=== PATIENT | female | born 2005 | race Caucasian/White ===

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

== ENCOUNTER 2023-02-12 19:25 | Emergency (ER) | payer OTHER, SELFPAY ==
[2023-02-12] VITALS (7 sets, daily range): BP systolic 110–137; BP diastolic 65–85; PULSE 66–86; RESP 14–25; TEMP 36.7–36.9; O2SAT 96–99
--- NOTE | 2023-02-12 20:01 | HMH.EDGENADL ---
Discharge Plan Disposition Patient Disposition: Home, Self-Care Chief Complaint: Abdominal Pain Prescriptions Prescriptions: No Action + DHA 28 mg iron- 975 mcg-200 mg Combo Pack 1 pkg PO DAILY Referrals Follow up/Referrals: Ana Paula Andujar [Primary Care Provider] - See instructions Activity Restrictions/Add. Instructions Additional Instructions/Restrictions: At this time it was felt you are safe to be discharged home. If new or worsening symptoms please do not hesitate to return the emergency department. Please continue to follow-up with your obstetric doctor to trend your blood work early next week. Clinical Impressions Clinical Impression: Spontaneous Discharge ED Provider: Raymundo Mathews General Adult HPI General Chief complaint: Abdominal Pain Stated complaint: vaginal bleeding, abd pain Time Seen by Provider: 02/12/23 19:35 Mode of Arrival: Wheelchair Source of Information: Patient Limitations: No Limitations Description of Symptoms (Recalled from ER Triage Doc. by RN): Patient reports that she started bleeding this morning. Ultrasound showed 8 week gestation fetus without cardiac activity while dates should place her at 11 weeks . Bleeding became heavier this evening and she states that she has soiled 3 pads in the last 2 hours. Complains of suprapubic pressure rated 8/10. Patient reports that she has passed clots and believes she has passed products of conception. History of Present Illness HPI narrative: Patient is a 18-year-old female G1, P0 EGA 11 weeks who presents emergency department for evaluation of vaginal bleeding. Patient reportedly had been told that she was going to have a miscarriage at recent ultrasound in another hospital system. Today she had vaginal bleeding, suprapubic pressure causing her to present here for continued evaluation. No other acute complaints at this time. Related Data Home Medications Medication Instructions Recorded Confirmed vits,calcium 91-iron 28 1 pkg PO DAILY 02/12/23 02/12/23 mg-folic 975 mcg-dha 200 mg oral pack ( + DHA) Allergies Allergy/AdvReac Type Severity Reaction Status Date / Time No Known Allergies Allergy Verified 01/11/20 12:52 [facility] Disclaimer: The information contained in this section may have been updated after the patient was seen, as this information can be updated by other users. Social History Smoking Status: Unknown if ever smoked alcohol intake: never current occupational status: other Travel in the last 8 weeks: None ROS Obtained: Yes Systems reviewed as appropriate & no additional complaints except as documented Physical Exam General General appearance: alert and in no apparent distress Head Head exam: atraumatic and normocephalic Eye Eye exam: Present PERRL and EOMI ENT ENT exam: Present mucous membranes moist Neck Neck exam: Present normal inspection Chest Chest inspection: Present normal inspection and symmetric chest wall rise Respiratory Respiratory exam: Present normal lung sounds bilaterally; Absent respiratory distress Cardiovascular Cardiovascular exam: Present regular rate and normal rhythm Abdominal Exam Abdominal exam: Present soft and tenderness (Mild, suprapubic); Absent guarding or rebound Extremities Exam Extremities exam: Present normal inspection Neurological Exam Neurological exam: Present alert Psychiatric Psychiatric exam: Present normal affect Skin Skin exam: Present warm and dry Medical Decision Making Chetan Inquiry Pt receiving controlled substance: No Vital Signs: 02/12/23 19:26 02/12/23 19:32 02/12/23 20:00 Temperature 98.5 F Temperature Source Oral Pulse Rate 86 85 Pulse Rate [Right Radial] 77 Respiratory Rate 14 25 H Blood Pressure 137/85 121/67 Blood Pressure [Right Arm] 137/85 Blood Pressure Mean [Right Arm] 102 Blood Pressure Source [Rig
[2023-02-12 20:07] LABS: Basophils % 0.2 % (0.1-2.0); Eosinophils # 0.1 K/mm3 (0.0-0.4); Eosinophils % 0.9 % (0.1-12.0); Hematocrit 39.5 % (37.0-47.0); Hemoglobin 13.5 g/dL (12.2-16.2); Lymphocytes # 3.4 K/mm3 (0.7-4.5); Lymphocytes % 29.3 % (10-50); Mean Corpuscular HGB Conc 34.3 g/dL (31.8-35.4); Mean Corpuscular Hemoglobin 31.9 pg (27.0-31.2); Mean Corpuscular Volume 93.1 fl (81-99); Mean Platelet Volume 8.6 fl (7.4-10.4); Monocytes # 0.7 K/mm3 (0.1-1.0); Neutrophils # 7.3 K/mm3 (1.8-7.8); Neutrophils % 63.6 % (37.0-80.0); Platelet Count 249 K/mm3 (142-424); Red Blood Count 4.24 M/mm3 (4.20-5.40); Red Cell Distribution Width 12.8 % (11.5-17.5); White Blood Count 11.5 K/mm3 (4.5-13.0)
[2023-02-12 20:14] LABS: Chloride 106 mmol/L (98-107); Potassium 3.7 mmoL/L (3.5-5.1); Sodium 139 mmol/L (136-145)
[2023-02-12 20:16] LABS: Alanine Aminotransferase 39 U/L (12-78); Aspartate Amino Transferase 37 U/L (14-36); Blood Urea Nitrogen 8 mg/dl (7-17); Creatinine Clearance Estimated 187 mL/min (50-200); Estimated Glomerular Filt Rate 127 ml/min (>60); GFR (African American) 154 ML/MIN (>60)
[2023-02-12 20:17] LABS: Albumin Level 4.8 g/dl (3.5-5.0); Albumin/Globulin Ratio 1.5 (1.1-1.8); Alkaline Phosphatase 72 U/L (38-126); Anion Gap 13.7 mEq/L (5-15); Bilirubin,Total 0.3 mg/dl (0.2-1.3); Calcium 9.4 mg/dl (8.4-10.2); Carbon Dioxide 23 mmol/L (22.0-30.0); Globulin 3.2 g/dL (1.3-3.2); Glucose 100 mg/dl (74-100)
[2023-02-12 20:24] LABS: Microscopic, Urine URINE MICROSCOPIC (MICROSCOPIC)
[2023-02-12 20:34] LABS: HCG,Quantitative 2684 mIU/ml (0-5.42)
--- NOTE | 2023-02-12 20:35 | US_ITS ---
PROCEDURE INFORMATION: Exam: US , Transvaginal and US Duplex Artery or Vein, Ovaries, Limited Exam date and time: 02/12/2023 9:08 PM Age: 18 years old Clinical indication: Lmp or gestational age (in weeks): 12/10/2022; Other: Bleeding - passing clot; Patient HX: Keith Juarez -- was told in doctor's office today she was having a miscarriage -- has been bleeding heavy with clots since; Additional info: Establish preg location/poss [facility] LABS AND CLINICAL REPORTS: Last menstrual period start date: 12/10/2022 Gestational age (Established): 9 w 1 d Estimated due date (Established): 09/16/2023 TECHNIQUE: Imaging protocol: Real-time transvaginal obstetrical ultrasound of the maternal pelvis and a first trimester with image documentation. Transvaginal imaging was used for better evaluation of the fetus, adnexa, and/or cervix. Real-time duplex ultrasound scan of the arterial or venous flow of the ovaries with B-mode, color Doppler flow and spectral waveform analysis, Limited Duplex. Duplex exam was performed to evaluate for torsion and other vascular conditions. COMPARISON: CR XR COCCYX 2V 02/17/2022 12:46 PM FINDINGS: GESTATION: Gestation: No intrauterine gestational sac is identified. A simple appearing 4 mm cystic focus in the posterior proximal cervix along the endometrial canal is most consistent with a nabothian cyst with no yolk sac or pole demonstrated. MATERNAL: Right ovary/adnexa: Right ovary measures 3.13 cm x 1.72 cm x 1.28 cm. Right ovarian volume is 3.61 mL. Normal grayscale appearance with small physiologic follicles. Color flow documented. Spectral venous waveforms documented. Left ovary/adnexa: Left ovary measures 2.59 cm x 2.65 cm x 1.37 cm. Left ovarian volume is 4.92 mL. Normal grayscale appearance with probable 10 mm corpus luteum in the left ovary. Color flow documented. Spectral venous waveforms and low resistance arterial waveforms documented. Vagina: Mild endometrial stripe thickening measuring up to 9 mm, with heterogeneous mixed density hyperechoic, isoechoic, and hypoechoic content suggesting a small amount of complex fluid which is greatest in the mid and distal segments, likely hemorrhage given the history of vaginal bleeding. Intraperitoneal space: No intraperitoneal free fluid. IMPRESSION: 1. No definite intrauterine gestational sac is identified currently. There is complex fluid content in the endometrial cavity probably representing blood products given the history of vaginal bleeding, with no definite retained products of conception. 2. If there was a known well documented intrauterine gestation previously, then the findings are most consistent with completed spontaneous miscarriage. If that is not the case, then the possibility of early IUP or occult ectopic should still be considered. Recommend followup quantitative beta-hCG assessment, with follow up ultrasound if clinically indicated. 3. Normal ovaries with probable corpus luteum in the left ovary. No peritoneal free fluid. 4. Probable nabothian cyst in the proximal cervix.
[2023-02-12 20:41] LABS: Appearance,Urine CLEAR (Clear); Bilirubin,Urine Negative (Negative); Blood, Urine 3+ (Negative); Color,Urine YELLOW (Yellow); Glucose,Urine (UA) Negative (Negative); Ketones,Urine Negative (Negative); Leukocyte Esterase,Urine Negative (Negative); Nitrate,Urine Negative (Negative); Protein,Urine Negative (Negative); Specific Gravity, Urine 1.025 (1.005-1.030); Urobilinogen,Urine 0.2 EU/dl (0.2)
[2023-02-12 20:45] LABS: RBC,Urine 20-50 #/hpf (0-3); Squamous Epithelial Cell,Urine Occasional #/hpf (0-5)
--- NOTE | 2023-02-12 21:07 | PC.NURSE ---
patient gone to US at this time.
--- NOTE | 2023-02-12 21:37 | PC.NURSE ---
patient back in room at this time.
== END 2023-02-12 23:06 | disposition home or self-care (01) ==
PROVIDERS: Emergency Provider Emergency Medicine; PCP Nurse Practitioner Family
DX: O03.9 Complete or unspecified spontaneous abortion without complication (principal)
CPT/HCPCS: 36415; 76817; 80053; 81001; 84702; 85025; 86850; 99284

== ENCOUNTER 2023-07-20 08:59 | Outpatient (CLI) | payer OTHER, SELFPAY ==
[2023-07-20 13:20] LABS: HCG,Quantitative 49788 mIU/ml (0-5.42)
[2023-07-21 08:26] LABS: Progesterone 7.3 ng/mL (.)
== END 2023-07-20 23:59 ==
PROVIDERS: PCP Nurse Practitioner Family; Visit Provider Obstetrics & Gynecology
DX: K08.129 Complete loss of teeth due to periodontal diseases, unspecified class (principal); N92.6 Irregular menstruation, unspecified; Z32.00 Encounter for pregnancy test, result unknown
CPT/HCPCS: 36415; 84144; 84702

== ENCOUNTER 2023-07-23 19:10 | Outpatient (CLI) | payer OTHER, SELFPAY ==
[2023-07-27 00:09] LABS: Neisseria gonorrhoeae, NAA Negative (Negative)
== END 2023-07-23 23:59 | disposition home or self-care (01) ==
LOC: LAB.DROPOF 19:10
PROVIDERS: PCP Obstetrics & Gynecology; Visit Provider Obstetrics & Gynecology
DX: O26.891 Other specified pregnancy related conditions, first trimester (principal); Z3A.08 8 weeks gestation of pregnancy
CPT/HCPCS: 87086; 87491; 87591

== ENCOUNTER 2023-08-17 12:33 | Outpatient (CLI) | payer OTHER, SELFPAY ==
[2023-08-17 13:10] LABS: Basophils % 0.3 % (0.1-2.0); Eosinophils # 0.1 K/mm3 (0.0-0.4); Eosinophils % 0.8 % (0.1-12.0); Hematocrit 40.4 % (37.0-47.0); Hemoglobin 13.4 g/dL (12.2-16.2); Lymphocytes # 2.4 K/mm3 (0.7-4.5); Lymphocytes % 18.5 % (10-50); Mean Corpuscular HGB Conc 33.1 g/dL (31.8-35.4); Mean Corpuscular Hemoglobin 31.5 pg (27.0-31.2); Mean Corpuscular Volume 95.2 fl (81-99); Mean Platelet Volume 8.8 fl (7.4-10.4); Monocytes # 0.7 K/mm3 (0.1-1.0); Monocytes % 5.2 % (1.7-9.3); Neutrophils # 9.7 K/mm3 (1.8-7.8); Neutrophils % 75.2 % (37.0-80.0); Platelet Count 274 K/mm3 (142-424); Red Blood Count 4.25 M/mm3 (4.20-5.40); Red Cell Distribution Width 13.3 % (11.5-17.5); White Blood Count 12.9 K/mm3 (4.5-13.0)
[2023-08-18 06:35] LABS: Rubella Antibodies, IgG 1.56 index (Immune >0.99)
[2023-08-18 13:15] LABS: Rapid Plasma Reagin Ab Titer Non Reactive titer (NonRea<1:1)
[2023-08-20 15:48] LABS: HIV Screen 4th Generation wRfx Non Reactive; Hepatitis B Surface Antigen Negative
[2023-08-20 15:49] LABS: Hepatitis C Antibody Non Reactive
== END 2023-08-17 23:59 | disposition home or self-care (01) ==
LOC: LAB 12:34
PROVIDERS: PCP Nurse Practitioner Family; Visit Provider Obstetrics & Gynecology
DX: O26.891 Other specified pregnancy related conditions, first trimester (principal); Z3A.11 11 weeks gestation of pregnancy
CPT/HCPCS: 36415; 85025; 86593; 86703; 86762; 86850; 87340; 87380; G0432

== ENCOUNTER 2023-10-14 09:06 | Outpatient (CLI) | payer OTHER, SELFPAY ==
--- NOTE | 2023-10-14 09:07 | US_ITS ---
PROCEDURE: US OB >= 14 WEEKS FETUS CLINICAL INDICATION: 20 wk+ Anatomy Scan-Complete US OB COMPARISON: No exams were available for comparison FINDINGS: Transabdominal sonographic images of the pelvis were obtained. From her established due date she is 19 weeks 2 days.. Single viable intrauterine gestation. Cephalic position. Placenta: Posteriorplacenta grade 1. There is an average amount of fluid. The cervix appears satisfactory. Closed and measuring 2.96 cm-4.1 cm in length. Complete survey performed and was unremarkable on the submitted images as in PACS. No discrete anomalies identified on survey imaging by technologist. Active fetus. Three-vessel cord with satisfactory umbilical cord insertion. 4- chamber heart noted. Situs, aortic arch, LVOT, RVOT, three-vessel view appear normal. Survey of brain & ventricles Unremarkable. Cerebellum, thalamus, choroid plexus, cisterna magna appear normal. Face and neck survey unremarkable. Profile, nasion, lips and nose appeared normal. Diaphragm and chest views unremarkable. Abdomen: Both kidneys noted and unremarkable. Stomach and bladder noted and satisfactory. Spine: Survey of the spine satisfactory with no anomalies identified nor imaged. Cervical, thoracic, lower spine appear normal. Both arms and legs noted. Amniotic Fluid: Adequate. MVP 7.61 cm Measurements: Average ultrasound age 20weeks 1day. Estimated due date by ultrasound age 1103/01/2024. Estimated weight 325g BPD = 20weeks 1day HC = 20weeks 0 days AC = 20weeks 5days FL = 19weeks 3days Growth Percentile= 84 Heart Rate = 132bpm Cerebellum = 18weeks 6days Humerus = 19weeks 4days HC/AC is 1.13 FL/BPD is 0.65 FL/AC is 0.2 anatomical scan appears normal. IMPRESSION: 1. Viable fetus in the cephalic presentation with a posterior placenta grade 1. 2. Fluid is within normal limits with an MVP of 7.61 cm. 3. Anatomical scan appears normal. 4. biometry is consistent with the dates. Dictated by: Varghese Donahue MD 10/14/2023 10:41 Varghese Donahue MD in [facility] 10/14/2023 10:41
== END 2023-10-14 23:59 | disposition home or self-care (01) ==
LOC: RAD 09:07
PROVIDERS: PCP Nurse Practitioner Family; Visit Provider Obstetrics & Gynecology
DX: Z36.3 Encounter for antenatal screening for malformations (principal); Z3A.19 19 weeks gestation of pregnancy
CPT/HCPCS: 76805

== ENCOUNTER 2023-12-09 11:18 | Outpatient (CLI) | payer OTHER, SELFPAY ==
[2023-12-09 11:40] LABS: Basophils # 0.1 K/mm3 (0-0.2); Basophils % 0.3 % (0.1-2.0); Eosinophils # 0.2 K/mm3 (0.0-0.4); Hematocrit 35.8 % (37.0-47.0); Hemoglobin 11.9 g/dL (12.2-16.2); Lymphocytes # 2.5 K/mm3 (0.7-4.5); Lymphocytes % 17.1 % (10-50); Mean Corpuscular HGB Conc 33.1 g/dL (31.8-35.4); Mean Corpuscular Hemoglobin 31.9 pg (27.0-31.2); Mean Corpuscular Volume 96.5 fl (81-99); Mean Platelet Volume 9.6 fl (7.4-10.4); Monocytes % 6.5 % (1.7-9.3); Neutrophils # 10.9 K/mm3 (1.8-7.8); Platelet Count 255 K/mm3 (142-424); Red Blood Count 3.72 M/mm3 (4.20-5.40); Red Cell Distribution Width 13.4 % (11.5-17.5); White Blood Count 14.5 K/mm3 (4.5-13.0)
[2023-12-09 12:52] LABS: Glucose,Fasting 92 mg/dl (74-100)
[2023-12-09 13:21] LABS: Glucose 1 Hour 115 mg/dL (74-100)
[2023-12-10 12:13] LABS: Rapid Plasma Reagin Ab Titer Non Reactive titer (NonRea<1:1)
== END 2023-12-09 23:59 | disposition home or self-care (01) ==
LOC: LAB 11:21
PROVIDERS: PCP Nurse Practitioner Family; Visit Provider Obstetrics & Gynecology
DX: Z34.90 Encounter for supervision of normal pregnancy, unspecified, unspecified trimester (principal)
CPT/HCPCS: 36415; 82951; 85025; 86593

== ENCOUNTER 2024-02-08 16:58 | Outpatient (CLI) | payer OTHER, SELFPAY | END 2024-02-08 23:59 | disposition home or self-care (01) | LOC: LAB.DROPOF 16:59 | PROVIDERS: PCP Obstetrics & Gynecology; Visit Provider Obstetrics & Gynecology | DX: Z34.90 Encounter for supervision of normal pregnancy, unspecified, unspecified trimester (principal) | CPT/HCPCS: 86403 ==

== ENCOUNTER 2024-03-01 04:54 | Inpatient (IN) | payer OTHER, SELFPAY ==
[2024-03-01] VITALS (7 sets, daily range): BP systolic 116–136; BP diastolic 53–74; PULSE 65–85; RESP 14–18; TEMP 36.5–36.7; O2SAT 97–100; BMI 36.2
--- OUTSIDE RECORDS SUMMARY | 2024-03-01 04:59 | XMS_ITS | Clinical Summary ---
Author Organization [facility] Address [address] [place] [address] Care Team Providers Care Flame Gouger Name Role Phone Ana Paula Andujar APRN Primary Care Provider + [phone] Allergies No known active allergies Social History Tobacco Use Types Packs/Day Years Used Date Smoking Tobacco: Every Day Smokeless Tobacco: Never Comments:vapes Alcohol Use Standard Drinks/Week Comments Never 0 (1 standard drink = 0.6 oz pur e alcohol) Interpersonal Safety Answer Date Record ed Family or friends hurt you Not on file 05/02 Family or friends insult you Not on file Family or friends threaten you Not on file 0 05/02/2023 Family or friends scream or curse at you Not on file 05/02/2023 Housing Stability Answer Date Recorded Living situation today Not on file Living situation problems Not on file 2023 Food Insecurity Answer Date Recorded Food run out past 12 months Not on file 04/14 Food did not last past 12 months Not on file 05/02/2023 Employment Answer Date Recorded Help finding and keeping a job Not on file 0 05/02/2023 Family and Community Support Answer Manuel e Recorded Help with Day to Day Activities Not on file 05/02/2023 Feeling Lonely or Isolated Not on file 05/02 Educational Attainment Answer Date Daniel rded Speak language other than [place] at home Not on file 05/02/2023 Want help with school or training Not on file 05/02/2023 Depression Answer Date Recorded PHQ-2 Risk Not on file 05/02/2023 Disabilities Answer Date Recorded Difficulty concentrating Not on file 024 Difficulty doing errands alone Not on file 0 05/02/2023 Substance Use Answer Date Recorded Used prescription meds for non-medical reasons N ot on file 05/02/2023 Used illegal drugs past 12 months Not on file 05/02/2023 Comments No Sex and Gender Information Value Date Recorded Sex Assigned at Not on file Legal Sex Female 6:17 PM CDT Gender Identity Not on file Sexual Orientation Not on file Last Filed Vital Signs Vital Sign Reading Time Taken Comments Blood Pressure 131/60 02/13/2022 7:26 PM EDT Pulse 79 02/13/2022 7:26 PM EDT Temperature 36.9 ??C (98.4 ??F) 02/13/2022 7:26 PM ED T Respiratory Rate 18 02/13/2022 7:26 PM EDT Oxygen Saturation 100% 02/13/2022 7:26 PM EDT Inhaled Oxygen Concentration - - Weight 81.6 kg (180 lb) 02/13/2022 7:26 PM EDT Height 162.6 cm (5' 4 ) 02/13/2022 7:26 PM EDT Body Mass Index 30.9 02/13/2022 7:26 PM EDT Plan of Treatment Health Maintenance Due Date Last Done Comments Chlamydia and Gonorrhea Screening 2003 Pneumococcal Vaccine: 0-64 Y ears (1 of 2 - PCV) 2009 Depression Screening (12+) 2015 HIV Screening 2018 Hepatitis C Screening 2021 Lipid Panel 2023 Tobacco Cessation Counseling and Screening (12+) 02/13/2023 02/13/2022 COVID-19 VACCINE (1 - 2023-2 5 season) 2023 Influenza Vaccine (#1) 2023 Pap Smear 02/01/2024 DTAP/TDAP/TD VACCINES (7 - T d or Tdap) 11/19/2025 11/20/2015, 02/26/2007, 06/07/2004, Additional history exists Insurance [facility] MEDICA[employer] OF [place] Care Teams Flame Gouger Relationship Specialty Start Date End Date Ana Paula Andujar, CULINARY MANAGER PCP - General Family Medicine 02/13/22
--- OUTSIDE RECORDS SUMMARY | 2024-03-01 04:59 | XMS_ITS | Encounter Summary ---
Author Organization [facility] Address [address] [place] [address] Care Team Providers Care Admissions Supervisor Name Role Phone Ana Paula Andujar PROTECTION MGR Primary Care Provider + [phone] Encounter Details Date Type Department Care Team (Latest Contact Info) Description 02/13/2022 Travel Social History Tobacco Use Types Packs/Day Years Used Date Smoking Tobacco: Every Day Smokeless Tobacco: Never Comments:vapes Alcohol Use Standard Drinks/Week Comments Never 0 (1 standard drink = 0.6 oz pur e alcohol) Comments No Sex and Gender Information Value Date Recorded Sex Assigned at Not on file Legal Sex Female 6:17 PM CDT Gender Identity Not on file Sexual Orientation Not on file COVID-19 Exposure Response Date Recorded In the last 10 days, have yo u been in contact with someone who was confirmed or suspected to have Coronavirus/COVID-19? No / Unsure 02/13/2022 7:29 PM EDT documented as of this encounter Plan of Treatment Not on file documented as of this encounter Visit Diagnoses Not on filedocumented in this encounter Care Teams Admissions Supervisor Relationship Specialty Start Date End Date Ana Paula Andujar APRN PCP - General Family Medicine 02/13/22 documented as of this encounter
--- OUTSIDE RECORDS SUMMARY | 2024-03-01 04:59 | XMS_ITS | Data Portability ---
Author Organization [facility] Address [address] [place] [address] Assessment Encounter Date Assessment Date Assessment LastModified by Organization Details LastModified Time 02/12/2023 02/12/2023 18 yo here as bring in for vaginal bleeding and cramping [email or web address] Not available 02/12/2023 11:08:14 Plan of Treatment Reminders Order Date Submit Date Provider Last Modified By Organization Details Last Modified Time Details Appointments None recorded. Lab urinalysis , dipstick 2022 023 [facility] Dough Braker, [address] [place] [address] , [place], [address], 3 14:49:27 urinalysis , dipstick 2022 023 [email or web address] [place] [facility], [address] [place] [address] , [place], [address], 3 11:11:50 CBC w/ auto diff 2022 023 SAAD [facility], [address], Antonio F, [place], [address], 3 04:09:37 HCG, intact + beta subunit, quant, serum or plasma 2022 023 SAAD [facility], [address], Antonio [address], [place], [address], 3 09:14:49 Referral None recorded. Procedures None recorded. Surgeries None recorded. Imaging US, obstetric, 1st trimester [address] Dough Braker, [address] [place] [address] , [place], [address], 3 11:08:00 US, obstetric, 1st trimester [address] Dough Braker, [address] [place] [address] , [place], [address], 3 11:24:11 US, obstetric, 1st trimester 2022 023 [facility] [place] [facility], [address] [place] [address] , [place], [address], 3 15:30:11 US, obstetric, 1st trimester 2022 023 [facility] [place] [facility], [address] [place] [address] , [place], [address], 3 19:13:36 Medication Orders 28 mg iron-800 mcg tablet 2022 023 [facility], [address] [place], [address], 3 14:54:44 Patient TargetsNo targets recorded. Patient Instructions Encounter Date Encounter Id Patient Instructions Last Modified By Organization Details Last Modified Time 02/12/2023 [id number] US today shows nonviable IUP. Cervix open. C/w inevitable miscarriage measuring 8+3 wk GA. No signs of infection. Discussed options including suction D&C, medication, or expectant mgmt. She desires expectant mgmt. Given strict precautions for bleeding, infection, Discussed return in 1 wk for f/u and US. Discussed CBC today. Rh positive. [email or web address] Not available 02/12/2023 11:11:48 Reason for Referral None Reported. Results Created Date Observation Date Name Description Value Unit Range Abnormal Flag Note LastModifiedBy Organization Detail LastModifiedTime 01/09/20 23 01/09/2023 PREGN ANTHONY, INITI AL SCREE N HBsAg screen Negati ve negati ve Not Available [facility] ([facility]) [address] [facility], [place], [address], 01/10/2023 16:11:39 01/09/20 23 01/09/2023 PREGN ANTHONY, INITI AL SCREE N HCV Ab Non Reacti ve non reacti ve Not Available [facility] ([facility]) [address] [facility], [place], [address], 01/10/2023 16:11:39 01/09/20 23 01/09/2023 PREGN ANTHONY, INITI AL SCREE N interpretati on: Commen t Not infec daly with HCV unles s early or acute infec tion is suspe cted (whic h may be delay ed in an immun ocomp romis ed indiv idual ), or other evide nce exist s to indic ate HCV infec tion. Not Available [facility] ([facility]) [address] [facility], [place], [address], 01/10/2023 16:11:39 01/09/20 23 01/09/2023 PREGN ANTHONY, INITI AL SCREE N RPR Non Reacti ve non reacti ve Not Available [facility] ([facility]) [address] [facility], [place], [address], 01/10/2023 16:11:39 01/09/20 23 01/09/2023 PREGN ANTHONY, INITI AL SCREE N rubella antibodies, IgG 1.79 index immune >0.99 Non-i mmune <0.90 Equiv ocal 0.90 - 0.99 Immun e >0.99 Not Available [facility] ([facility]) [address] [facility], [place], [address], 01/10/2023 16:11:39 01/09/20 23 01/09/2023 PREGN ANTHONY, INITI AL SCREE N ABO grouping O Not Available [facility] ([facility]) [address] [facility], [place], [address], 01/10/2023 16:11:39 01/09/20 23 01/09/2023 PREGN ANTHONY, INITI AL SCREE N Rh factor Positi ve Pleas e note: Prior recor ds for this patie nt's ABO / Rh type are not avail able for addit ional verif icati on. Not Available [facility] ([facility]) [address] [facility], [place], [address], 01/10/2023 16:11:39 01/09/20 23 01/09/2023 PREGN ANTHONY, INITI AL SCREE N antibody screen Negati ve negati ve Not Available [facility] ([facility]) [address] [facility], [place], [address], 01/10/2023 16:11:39 01/09/20 23 01/09/2023 PREGN ANTHONY, INITI AL SCREE N HIV Ab/P24 Ag screen Non Reacti ve non reacti ve HIV Negat miriam HIV-1 /HIV- 2 antib odies and HIV-1 p24 antig en were NOT detec daly. There is no labor atory evide nce of HIV infec tion. Not Available [facility] ([facility]) [address] [facility], [place], [address], 01/10/2023 16:11:39 01/09/20 23 01/09/2023 PREGN ANTHONY, INITI AL SCREE N WBC 8.1 x10e3 /uL 3.4-10 .8 Not Available [facility] ([facility]) [address] [place], [address], 01/10/2023 16:11:39 01/09/20 23 01/09/2023 PREGN ANTHONY, INITI AL SCREE N RBC 4.05 x10e6 /uL 3.77-5 .28 Not Available [facility] ([facility]) [address] [place], [address], 01/10/2023 16:11:39 01/09/20 23 01/09/2023 PREGN ANTHONY, INITI AL SCREE N hemoglobin 12.5 g/dL 11.1-1 5.9 Not Available [facility] ([facility]) [address] [facility], [place], [address], 01/10/2023 16:11:39 01/09/20 23 01/09/2023 PREGN ANTHONY, INITI AL SCREE N hematocrit 38.6 % 34.0-4 6.6 Not Available [facility] ([facility]) [address] [facility], [place], [address], 01/10/2023 16:11:39 01/09/20 23 01/09/2023 PREGN ANTHONY, INITI AL SCREE N MCV 95 fL 79-97 Not Available [facility] ([facility]) [address] [facility], [place], [address], 01/10/2023 16:11:39 01/09/20 23 01/09/2023 PREGN ANTHONY, INITI AL SCREE N MCH 30.9 pg 26.6-3 3.0 Not Available [facility] ([facility]) [address] [facility], [place], [address], 01/10/2023 16:11:39 01/09/20 23 01/09/2023 PREGN ANTHONY, INITI AL SCREE N MCHC 32.4 g/dL 31.5-3 5.7 Not Available [facility] ([facility]) [address] [place], [address], 01/10/2023 16:11:39 01/09/20 23 01/09/2023 PREGN ANTHONY, INITI AL SCREE N RDW 12.3 % 11.7-1 5.4 Not Available [facility] ([facility]) [address] [place], [address], 01/10/2023 16:11:39 01/09/20 23 01/09/2023 PREGN ANTHONY, INITI AL SCREE N platelets 267 x10e3 /uL 150-45 0 Not Available [facility] ([facility]) [address] [facility], [place], [address], 01/10/2023 16:11:39 01/09/20 23 01/09/2023 PREGN ANTHONY, INITI AL SCREE N neutrophils 62 % not estab. Not Available [facility] ([facility]) [address] [facility], [place], [address], 01/10/2023 16:11:39 01/09/20 23 01/09/2023 PREGN ANTHONY, INITI AL SCREE N lymphs 28 % not estab. Not Available [facility] ([facility]) [address] [facility], [place], [address], 01/10/2023 16:11:39 01/09/20 23 01/09/2023 PREGN ANTHONY, INITI AL SCREE N monocytes 9 % not estab. Not Available [facility] ([facility]) [address] [facility], [place], [address], 01/10/2023 16:11:39 01/09/20 23 01/09/2023 PREGN ANTHONY, INITI AL SCREE N eos 1 % not estab. Not Available [facility] ([facility]) [address] [facility], [place], [address], 01/10/2023 16:11:39 01/09/20 23 01/09/2023 PREGN ANTHONY, INITI AL SCREE N basos 0 % not estab. Not Available [facility] ([facility]) [address] [facility], [place], [address], 01/10/2023 16:11:39 01/09/20 23 01/09/2023 PREGN ANTHONY, INITI AL SCREE N immature cells [employer] Not Available [facility] ([facility]) [address] [facility], [place], [address], 01/10/2023 16:11:39 01/09/20 23 01/09/2023 PREGN ANTHONY, INITI AL SCREE N neutrophils (absolute) 5.0 x10e3 /uL 1.4-7. 0 Not Available [facility] ([facility]) [address] [facility], [place], [address], 01/10/2023 16:11:39 01/09/20 23 01/09/2023 PREGN ANTHONY, INITI AL SCREE N lymphs (absolute) 2.2 x10e3 /uL 0.7-3. 1 Not Available [facility] ([facility]) [address] [place], [address], 01/10/2023 16:11:39 01/09/20 23 01/09/2023 PREGN ANTHONY, INITI AL SCREE N monocytes(ab solute) 0.7 x10e3 /uL 0.1-0. 9 Not Available [facility] ([facility]) [address] [facility], [place], [address], 01/10/2023 16:11:39 01/09/20 23 01/09/2023 PREGN ANTHONY, INITI AL SCREE N eos (absolute) 0.1 x10e3 /uL 0.0-0. 4 Not Available [facility] ([facility]) [address] [place], [address], 01/10/2023 16:11:39 01/09/20 23 01/09/2023 PREGN ANTHONY, INITI AL SCREE N baso (absolute) 0.0 x10e3 /uL 0.0-0. 2 Not Available [facility] ([facility]) [address] [place], [address], 01/10/2023 16:11:39 01/09/20 23 01/09/2023 PREGN ANTHONY, INITI AL SCREE N immature granulocytes 0 % not estab. Not Available [facility] ([facility]) [address] [place], [address], 01/10/2023 16:11:39 01/09/20 23 01/09/2023 PREGN ANTHONY, INITI AL SCREE N immature grans (abs) 0.0 x10e3 /uL 0.0-0. 1 Not Available [facility] ([facility]) [address] [facility], [place], [address], 01/10/2023 16:11:39 01/09/20 23 01/09/2023 PREGN ANTHONY, INITI AL SCREE N NRBC [employer] Not Available [facility] ([facility]) [address] [facility], [place], [address], 01/10/2023 16:11:39 01/09/20 23 01/09/2023 PREGN ANTHONY, INITI AL SCREE N hematology comments: [employer] Not Available [facility] ([facility]) [address] [facility], [place], [address], 01/10/2023 16:11:39 01/09/20 23 01/09/2023 PREGN ANTHONY, INITI AL SCREE N specific gravity 1.021 1.005- 1.030 Not Available [facility] ([facility]) [address] [facility], [place], [address], 01/10/2023 16:11:39 01/09/20 23 01/09/2023 PREGN ANTHONY, INITI AL SCREE N pH 5.5 5.0-7. 5 Not Available [facility] ([facility]) [address] [facility], [place], [address], 01/10/2023 16:11:39 01/09/20 23 01/09/2023 PREGN ANTHONY, INITI AL SCREE N urine-color Yellow yellow Not Available [facility] ([facility]) [address] [facility], [place], [address], 01/10/2023 16:11:39 01/09/20 23 01/09/2023 PREGN ANTHONY, INITI AL SCREE N appearance Cloudy clear abnormal Not Available [facility] ([facility]) [address] [facility], [place], [address], 01/10/2023 16:11:39 01/09/20 23 01/09/2023 PREGN ANTHONY, INITI AL SCREE N WBC esterase Negati ve negati ve Not Available [facility] ([facility]) [address] [facility], [place], [address], 01/10/2023 16:11:39 01/09/20 23 01/09/2023 PREGN ATNHONY, INITI AL SCREE N protein Negati ve negati ve/tra ce Not Available [facility] ([facility]) [address] [facility], [place], [address], 01/10/2023 16:11:39 01/09/20 23 01/09/2023 PREGN ANTHONY, INITI AL SCREE N glucose Negati ve negati ve Not Available [facility] ([facility]) [address] [facility], [place], [address], 01/10/2023 16:11:39 01/09/20 23 01/09/2023 PREGN ANTHONY, INITI AL SCREE N ketones Negati ve negati ve Not Available [facility] ([facility]) [address] [facility], [place], [address], 01/10/2023 16:11:39 01/09/20 23 01/09/2023 PREGN ANTHONY, INITI AL SCREE N occult blood Negati ve negati ve Not Available [facility] ([facility]) [address] [place], [address], 01/10/2023 16:11:39 01/09/20 23 01/09/2023 PREGN ANTHONY, INITI AL SCREE N bilirubin Negati ve negati ve Not Available [facility] ([facility]) [address] [place], [address], 01/10/2023 16:11:39 01/09/20 23 01/09/2023 PREGN ANTHONY, INITI AL SCREE N urobilinogen ,semi-qn 0.2 mg/dL 0.2-1. 0 Not Available [facility] ([facility]) [address] [facility], [place], [address], 01/10/2023 16:11:39 01/09/20 23 01/09/2023 PREGN ANTHONY, INITI AL SCREE N nitrite, urine Negati ve negati ve Not Available [facility] ([facility]) [address] [facility], [place], [address], 01/10/2023 16:11:39 01/09/20 23 01/09/2023 PREGN ANTHONY, INITI AL SCREE N microscopic examination Commen t Micro scopi c follo ws if indic ated. Not Available [facility] ([facility]) [address] [facility], [place], [address], 01/10/2023 16:11:39 01/09/20 23 01/09/2023 PREGN ANTHONY, INITI AL SCREE N microscopic examination See below: Micro scopi c was indic ated and was perfo rmed. Not Available [facility] ([facility]) [address] [facility], [place], [address], 01/10/2023 16:11:39 01/09/20 23 01/09/2023 PREGN ANTHONY, INITI AL SCREE N WBC 0-5 /hpf 0 - 5 Not Available [facility] ([facility]) [address] [facility], [place], [address], 01/10/2023 16:11:39 01/09/20 23 01/09/2023 PREGN ANTHONY, INITI AL SCREE N RBC None seen /hpf 0 - 2 Not Available [facility] ([facility]) [address] [place], [address], 01/10/2023 16:11:39 01/09/20 23 01/09/2023 PREGN ANTHONY, INITI AL SCREE N epithelial cells (non renal) >10 /hpf 0 - 10 abnormal Not Available [facility] ([facility]) [address] [facility], [place], [address], 01/10/2023 16:11:39 01/09/20 23 01/09/2023 PREGN ANTHONY, INITI AL SCREE N epithelial cells (renal) [employer] Not Available [facility] ([facility]) [address] [facility], [place], [address], 01/10/2023 16:11:39 01/09/20 23 01/09/2023 PREGN ANTHONY, INITI AL SCREE N casts None seen /lpf none seen Not Available [facility] ([facility]) [address] [facility], [place], [address], 01/10/2023 16:11:39 01/09/20 23 01/09/2023 PREGN ANTHONY, INITI AL SCREE N cast type [employer] Not Available [facility] ([facility]) [address] [facility], [place], [address], 01/10/2023 16:11:39 01/09/20 23 01/09/2023 PREGN ANTHONY, INITI AL SCREE N crystals [employer] Not Available [facility] ([facility]) [address] [facility], [place], [address], 01/10/2023 16:11:39 01/09/20 23 01/09/2023 PREGN ANTHONY, INITI AL SCREE N crystal type [employer] Not Available [facility] ([facility]) [address] [facility], [place], [address], 01/10/2023 16:11:39 01/09/20 23 01/09/2023 PREGN ANTHONY, INITI AL SCREE N mucus threads [employer] Not Available [facility] ([facility]) [address] [facility], [place], [address], 01/10/2023 16:11:39 01/09/20 23 01/09/2023 PREGN ANTHONY, INITI AL SCREE N bacteria Many none seen/f ew abnormal Not Available [facility] ([facility]) [address] [facility], [place], [address], 01/10/2023 16:11:39 01/09/20 23 01/09/2023 PREGN ANTHONY, INITI AL SCREE N yeast [employer] Not Available [facility] ([facility]) [address] [facility], [place], [address], 01/10/2023 16:11:39 01/09/20 23 01/09/2023 PREGN ANTHONY, INITI AL SCREE N trichomonas [employer] Not Available [facility] ([facility]) [address] [facility], [place], [address], 01/10/2023 16:11:39 01/09/20 23 01/09/2023 PREGN ANTHONY, INITI AL SCREE N comment [employer] Not Available [facility] ([facility]) [address] [facility], [place], [address], 01/10/2023 16:11:39 01/09/20 23 01/10/2023 PREGN ANTHONY, INITI AL SCREE N chlamydia trachomatis, KAVON Negati ve negati ve Not Available [facility] ([facility]) [address] [facility], [place], [address], 01/10/2023 16:11:39 01/09/20 23 01/10/2023 PREGN ANTHONY, INITI AL SCREE N neisseria gonorrhoeae, KAVON Negati ve negati ve Not Available [facility] ([facility]) [address] [facility], [place], [address], 01/10/2023 16:11:39 01/09/20 23 01/10/2023 PREGN ANTHONY, INITI AL SCREE N urine culture,pren atal, w/gbs Final report Not Available [facility] ([facility]) [address] [facility], [place], [address], 01/10/2023 16:11:39 01/09/20 23 01/10/2023 PREGN SHAJI CRUZ AL SCREE N result 1 COMMEN T Mixed uroge nital bud Less than 10,00 0 colon ies/m L Not Available [facility] ([facility]) [address] [facility], [place], [address], 01/10/2023 16:11:39 01/09/20 23 01/09/2023 HEMOG LOBIN A1C hemoglobin A1C 5.2 % 4.8-5. 6 Predi abete s: 5.7 - 6.4 Diabe becky: >6.4 Glyce paola contr ol for adult s with diabe becky: <7.0 Not Available [facility] ([facility]) [address] [facility], [place], [address], 01/10/2023 16:11:40 01/09/20 23 01/09/2023 VARIC ERNESTO- ZOSTE R V AB, IGG varicella zoster IgG 403 index immune >165 Negat miriam <135 Equiv ocal 135 - 165 Posit miriam >165 A posit miriam resul t gener ally indic ates expos ure to the patho gen or admin istra tion of speci fic immun oglob ulins , but it is not indic ation of activ e infec tion or stage of disea se. Not Available [facility] ([facility]) [address] [facility], [place], [address], 01/10/2023 16:11:41 01/09/20 23 01/15/2023 COMPL IANCE DRUG VENITA SIS, UR summary report (summary) FINAL ===== ===== ===== ===== ===== ===== ===== ===== ===== ===== ===== ===== ===== === TOXAS SURE COMP DRUG VENITA SIS,U R ===== ===== ===== ===== ===== ===== ===== ===== ===== ===== ===== ===== ===== === Test Resul t Flag Units NO DRUGS DETEC DALY. ===== ===== ===== ===== ===== ===== ===== ===== ===== ===== ===== ===== ===== === Test Resul t Flag Units Ref Range Creat inine 113 mg/dL >=20 ===== ===== ===== ===== ===== ===== ===== ===== ===== ===== ===== ===== ===== === Decla red Medic ation s: Medic ation list was not provi ded. ===== ===== ===== ===== ===== ===== ===== ===== ===== ===== ===== ===== ===== === For clini heather consu ltati on, pleas e call [phone]. ===== ===== ===== ===== ===== ===== ===== ===== ===== ===== ===== ===== ===== === Not Available [facility] ([facility]) [address] [facility], [place], [address], 01/15/2023 16:12:21 01/09/20 23 01/15/2023 COMPL IANCE DRUG VENITA SIS, UR pdf . Not Available [facility] ([facility]) [address] [facility], [place], [address], 01/15/2023 16:12:21 01/09/20 23 01/08/2023 pregn anthony test, urine HCG positi ve Not Available [place] [facility] [address] [facility] , [place], [address], 01/08/2023 08:52:45 02/13/20 23 02/13/2023 CBC WITH DIFFE RENTI AL/PL ATELE T WBC 12.2 x10e3 /uL 3.4-10 .8 above high normal Not Available [facility] ([facility]) [address] [facility], [place], [address], 02/13/2023 04:09:37 02/13/20 23 02/13/2023 CBC WITH DIFFE RENTI AL/PL ATELE T RBC 4.50 x10e6 /uL 3.77-5 .28 Not Available [facility] ([facility]) [address] [facility], [place], [address], 02/13/2023 04:09:37 02/13/20 23 02/13/2023 CBC WITH DIFFE RENTI AL/PL ATELE T hemoglobin 14.1 g/dL 11.1-1 5.9 Not Available [facility] ([facility]) [address] [facility], [place], [address], 02/13/2023 04:09:37 02/13/20 23 02/13/2023 CBC WITH DIFFE RENTI AL/PL ATELE T hematocrit 40.7 % 34.0-4 6.6 Not Available [facility] ([facility]) [address] [facility], [place], [address], 02/13/2023 04:09:37 02/13/20 23 02/13/2023 CBC WITH DIFFE RENTI AL/PL ATELE T MCV 90 fL 79-97 Not Available [facility] ([facility]) [address] [place], [address], 02/13/2023 04:09:37 02/13/20 23 02/13/2023 CBC WITH DIFFE RENTI AL/PL ATELE T MCH 31.3 pg 26.6-3 3.0 Not Available [facility] ([facility]) [address] [facility], [place], [address], 02/13/2023 04:09:37 02/13/20 23 02/13/2023 CBC WITH DIFFE RENTI AL/PL ATELE T MCHC 34.6 g/dL 31.5-3 5.7 Not Available [facility] ([facility]) [address] [place], [address], 02/13/2023 04:09:37 02/13/20 23 02/13/2023 CBC WITH DIFFE RENTI AL/PL ATELE T RDW 12.1 % 11.7-1 5.4 Not Available [facility] ([facility]) [address] [place], [address], 02/13/2023 04:09:37 02/13/20 23 02/13/2023 CBC WITH DIFFE RENTI AL/PL ATELE T platelets 300 x10e3 /uL 150-45 0 Not Available [facility] ([facility]) [address] [facility], [place], [address], 02/13/2023 04:09:37 02/13/20 23 02/13/2023 CBC WITH DIFFE RENTI AL/PL ATELE T neutrophils 65 % not estab. Not Available [facility] ([facility]) [address] [place], [address], 02/13/2023 04:09:37 02/13/20 23 02/13/2023 CBC WITH DIFFE RENTI AL/PL ATELE T lymphs 25 % not estab. Not Available [facility] ([facility]) [address] [place], [address], 02/13/2023 04:09:37 02/13/20 23 02/13/2023 CBC WITH DIFFE RENTI AL/PL ATELE T monocytes 9 % not estab. Not Available [facility] ([facility]) [address] [facility], [place], [address], 02/13/2023 04:09:37 02/13/20 23 02/13/2023 CBC WITH DIFFE RENTI AL/PL ATELE T eos 1 % not estab. Not Available [facility] ([facility]) [address] [facility], [place], [address], 02/13/2023 04:09:37 02/13/20 23 02/13/2023 CBC WITH DIFFE RENTI AL/PL ATELE T basos 0 % not estab. Not Available [facility] ([facility]) [address] [facility], [place], [address], 02/13/2023 04:09:37 02/13/20 23 02/13/2023 CBC WITH DIFFE RENTI AL/PL ATELE T immature cells [employer] Not Available [facility] ([facility]) [address] [place], [address], 02/13/2023 04:09:37 02/13/20 23 02/13/2023 CBC WITH DIFFE RENTI AL/PL ATELE T neutrophils (absolute) 7.9 x10e3 /uL 1.4-7. 0 above high normal Not Available [facility] ([facility]) [address] [facility], [place], [address], 02/13/2023 04:09:37 02/13/20 23 02/13/2023 CBC WITH DIFFE RENTI AL/PL ATELE T lymphs (absolute) 3.0 x10e3 /uL 0.7-3. 1 Not Available [facility] ([facility]) [address] [facility], [place], [address], 02/13/2023 04:09:37 02/13/20 23 02/13/2023 CBC WITH DIFFE RENTI AL/PL ATELE T monocytes(ab solute) 1.1 x10e3 /uL 0.1-0. 9 above high normal Not Available [facility] ([facility]) [address] [facility], [place], [address], 02/13/2023 04:09:37 02/13/20 23 02/13/2023 CBC WITH DIFFE RENTI AL/PL ATELE T eos (absolute) 0.1 x10e3 /uL 0.0-0. 4 Not Available [facility] ([facility]) [address] [facility], [place], [address], 02/13/2023 04:09:37 02/13/2002/13/2023 CBC WITH DIFFE RENTI AL/PL ATELE T baso (absolute) 0.0 x10e3 /uL 0.0-0. 2 Not Available [facility] ([facility]) [address] [place], [address], 02/13/2023 04:09:37 02/13/20 23 02/13/2023 CBC WITH DIFFE RENTI AL/PL ATELE T immature granulocytes 0 % not estab. Not Available [facility] ([facility]) [address] [facility], [place], [address], 02/13/2023 04:09:37 02/13/20 23 02/13/2023 CBC WITH DIFFE RENTI AL/PL ATELE T immature grans (abs) 0.0 x10e3 /uL 0.0-0. 1 Not Available [facility] ([facility]) [address] [facility], [place], [address], 02/13/2023 04:09:37 02/13/20 23 02/13/2023 CBC WITH DIFFE RENTI AL/PL ATELE T NRBC [employer] Not Available [facility] ([facility]) [address] [facility], [place], [address], 02/13/2023 04:09:37 02/13/20 23 02/13/2023 CBC WITH DIFFE RENTI AL/PL ATELE T hematology comments: [employer] Not Available [facility] [facility]) [address] [facility], [place], [address], 02/13/2023 04:09:37 02/20/2002/20/2023 HCG,B ETA SUBUN IT, QNT HCG,beta subunit,qnt, serum 71 mIU/m L Femal e (Non- pregn ant) 0 - 5 (Post menop ausal ) 0 - 8 Femal e (Preg nant) Weeks of Gesta tion 3 6 - 71 4 10 - 750 5 032 - 2207 6 611 - 39277 7 4214 -9743 63 8 90602 -0192 71 9 331430 -4697 10 10 63554 -8962 77 12 90675 -0188 12 14 93727 - 98488 15 11895 - 49913 16 7117 - 57506 17 9148 - 22874 18 0114 - 58800 Jaquelin ECLIA metho dolog y Not Available [facility] ([facility]) [address] [facility], [place], [address], 02/20/2023 09:14:49 01/16/2001/23/2023 US, madeline scott, 1st trime ster No observ ation record ed. lshower [place] Dough Braker [address] [place] [address] , [place], [address], 01/23/2023 13:49:25 01/28/20 23 01/22/2013 US, madeline tric, 1st trime ster No observ ation record ed. BARCODE [place] Dough Braker [address] [place] [address] , [place], [address], 01/27/2023 10:33:02 02/13/20 23 02/13/2023 US, madeline tric, 1st trime ster No observ ation record ed. [email or web address] [place] Dough Braker [address] [facility] , [place], [address], 02/13/2023 15:41:47 02/14/2002/12/2023 US, obste tric, 1st trime ster No observ ation record ed. BARCODE [place] Dough Braker [address] [place] [address] , [place], [address], 02/13/2023 14:07:10 02/20/20 US, obste tric, 1st trime ster No observ ation record ed. heidi [place] Dough Braker [address] [place] [address] , [place], [address], 02/19/2023 15:30:06 02/20/2002/19/2023 US, trans vagin al No observ ation record ed. BARCODE Not Available 2022 16:02:53 03/12/20 US, obste tric, 1st trime ster No observ ation record ed. heidi [place] Dough Braker [address] [place] [address] , [place], [address], 03/12/2023 19:13:36 03/19/2003/12/2023 US, obste tric, 1st trime ster No observ ation record ed. [facility] Dough Braker [address] [place] [address] , [place], [address], 03/19/2023 14:21:43 Result Notes None recorded. Problems Name Problem SNOMED Code Status Onset Date Resolution Date Notes Provider Name and Address Organization Details Recorded Time Pregnanc y 33613518 Completed 202202/16/2023 Infusion Nurse [facility] [address], [place], [address] , [place] - [facility] 3 08:07:01 Contrace ption care manageme nt Completed depo Infusion Nurse [facility] [address], [place], [address] , [place] - [facility] 3 08:06:55 Antenata l reema g Completed [ ]Mat21 desires at obpe (as of 10/12) [ ]AFP- [ ]CF-andriy res will check pA 01/22, draw at ob Infusion Nurse [facility] [address], [place], [address] , [place] - [facility] 3 08:06:55 Body mass index 30+ - obesity 813898596 Completed BMI: 30.3 starting wgt: 179 recommen ded wgt gain: 11-20 Infusion Nurse [facility] [address], [place], [address] , [place] - [facility] 3 08:06:55 Active immuniza tion Completed [-]Covid -decline d at obx [ ]Tdap- [-]Flu-d eclined at obx Infusion Nurse [facility] [address], [place], [address] , [place] [facility] 3 08:06:54 Maternal obesity complica ting pregnanc y, childbir th and the puerperi , antepart 99327008198 7 Completed 2022 [ ]ASA at 12wks [ ]Early 1hr gtt: mother and father both have DMll Infusion Nurse [facility] [address], [place], [address] , [place] [facility] 3 08:06:54 Maternal obesity complica ting pregnanc y, childbir th and the puerperi , [facility] 00442509853 7 Active 2022 [ ]ASA at 12wks [ ]Early 1hr gtt: mother and father both have DMll Infusion Nurse [facility] [address], [place], [address] , [place] [facility] 3 08:06:54 Referral placed [phone] Completed [x]WIC- proof of preg faxed//c d [x]dieti melvina-larisa meli at obx -has a dentist she sees regularl y Infusion Nurse [facility] [address], [place], [address] , [place] [facility] 3 08:06:54 Obesity 629820365 Active 2022 Jamar Jaimes RN [address], [place], [address] , [place] [facility] 3 11:27:51 Contrace ption care manageme nt Active 2022 Carmel Nunez, DO [address], [place], [address] , [place] [facility] 14:52:47 Problem Notes None recorded. Procedures Surgical History Date Name Laterality Status Provider Name and Address Organization Details Recorded Time OB Ultrasound Summary completed Jayden Ramirez [place] - [facility] 03/12/2023 14:22:22 3 OB Ultrasound Summary completed Girish Munoz [place] - [facility] 02/19/2023 15:02:21 3 OB Ultrasound Summary completed Girish Munoz [place] [facility] 02/12/2023 10:43:22 3 OB Ultrasound Summary completed Jayden Ramirez [place] [facility] 01/22/2023 08:50:00 extraction of wisdom tooth completed Maria Ines Davis APRN [address], [place], [address], [place] [facility] 01/08/2023 09:19:53 Imaging Results Imaging Date Name Status LastModified by Organization Details LastModified Time 01/23/2023 US, obstetric, 1st trimester completed izabella Ross Dough Braker [address] [place] [address] , [place], [address], 01/23/2023 13:49:25 01/22/2013 US, obstetric, 1st trimester completed JENNIFER [place] Dough Braker [address] [place] [address] , [place], [address], 01/27/2023 10:33:02 02/13/2023 US, obstetric, 1st trimester completed nata [place] D[facility] Braker [address] [place] [address] , [place], [address], 02/13/2023 15:41:47 02/12/2023 US, obstetric, 1st trimester completed JENNIFER [place] Dough Braker [address] [place] [address] , [place], [address], 02/13/2023 14:07:10 02/19/2023 US, obstetric, 1st trimester completed heidi [place] Dough Braker [address] [place] [address] , [place], [address], 02/19/2023 15:30:06 02/19/2023 US, transvaginal completed BARCODE Informat ion not available 02/19/2023 16:02:53 03/12/2023 US, obstetric, 1st trimester completed heidi Ross Dough Braker [address] [place] [address] [place], [address], 03/12/2023 19:13:36 03/12/2023 US, obstetric, 1st trimester completed BARCODE [place] Dough Braker [address] [place] [address] , [place], [address], 03/19/2023 14:21:43 Procedure Notes None recorded. Medical Equipment None Reported. Allergies No known drug allergies Medications Name Sig Start Date Stop Date Status Note LastModified by Organization Details LastModified Time cyclobenzapr ine 10 mg tablet 01/08 completed Not Available Not Available Not Available amoxicillin 500 mg capsule TAKE 1 CAPSULE EVERY 8 HOURS FOR 7 DAYS 01/08 completed Not Available Not Available Not Available pyridoxine (vitamin B6) 25 mg tablet Take 1 tablet 3 times a day by oral route for 30 days. 2022 active Not Available Not Available Not Avai lable 28 mg iron-800 mcg tablet Take 1 tablet by oral route. active Not Available Not Available No t Available Vitamins Plus Low Iron 27 mg iron-1 mg tablet Take 1 tablet every day by oral route for 90 days. 2022 active Not Available Not Available Not Avai lable Vitals Date Recorded Body height Body mass index (BMI) Body mass index (BMI) Percentile per age and sex Body weight Systolic blood pressure Diastolic blood pressure Provider Name and Address Organization Details Last Updated DateTime 3 163.83 cm 29.7 kg/m2 93 % 22228.2 5712 g 118 mm[Hg] 70 mm[Hg] Christian [place] - [facility] 3 09:39:26 Date Recorded Body height Body mass index (BMI) Body mass index (BMI) Percentile per age and sex Body weight Heart rate Body temperature Oxygen saturation Oxygen saturation in Arterial blood by Pulse oximetry Systolic blood pressure Diastolic blood pressure Provider Name and Address Organization Details Last Updated DateTime 3 163.83 cm 29.6 kg/m2 92 % 43721.6 6475 g 86 /min 97.3 [degF] 99 % 99 % 118 mm[Hg] 68 mm[Hg] Vidal De La Cruztoya [place] - [facility] 3 10:53:01 Date Recorded Body height Body mass index (BMI) Percentile per age and sex Body mass index (BMI) Body weight Systolic blood pressure Diastolic blood pressure Provider Name and Address Organization Details Last Updated DateTime 3 163.83 cm 93 % 29.7 kg/m2 39433.2 6 g 100 mm[Hg] 60 mm[Hg] Radha Marin [place] - [facility] 3 15:11:56 Date Recorded Body height Body mass index (BMI) Percentile per age and sex Body mass index (BMI) Body weight Systolic blood pressure Diastolic blood pressure Provider Name and Address Organization Details Last Updated DateTime 3 163.83 cm 93 % 29.7 kg/m2 11289.2 6 g 106 mm[Hg] 68 mm[Hg] Sailaja Dave [place] - [facility] 3 14:39:37 Social History Question Answer Notes LastModified by Organizat ion Details LastModified Time Tobacco Smoking Status Never Smoker Maria Ines Davis, SKIN INSTALLER [address], [place], [address], [place] [facility] 01/08/2023 09:17:55 Do You Have An Advance Directive? No Information not available 01/08/2023 What Is Your Level Of Alcohol Consumption? None Information not available 01/08/2023 Are You Blind Or Do You Have Difficulty Seeing? No Information not available 01/08/2023 Is Blood Transfusion Acceptable In An Emergency? Yes Information not available 01/08/2023 What Is Your Level Of Caffeine Consumption? Moderate Information not available 01/08/2023 In The 14 Days Before Symptom Onset, Have You Had Close Contact With A Laboratory-confir med COVID-19 While That Case Was Ill? No Information not available 01/08/2023 In The 14 Days Before Symptom Onset, Have You Had Close Contact With A Person Who Is Under Investigation For COVID-19 While That Person Was Ill? No Information not available 01/08/2023 Have You Been To An Area Known To Be High Risk For COVID-19? No Information not available 01/08/2023 Are You Currently Employed? Yes Information not available 01/08/2023 Are You Deaf Or Do You Have Serious Difficulty Hearing? No Information not available 01/08/2023 What Type Of Diet Are You Following? REGULAR Information not available 01/08/2023 Have You Processed Blood Or Body Fluids From An Ebola Virus Disease Patient Without Appropriate PPE? No Information not available 01/08/2023 Do You Reside In Or Have You Traveled To An Area Where Ebola Virus Transmission Is Active? No Information not available 01/08/2023 Do You Or Have You Ever Used E-cigarettes Or Vape? Current User Of Electronic Cigarettes Information not available 01/08/2023 What Is The Highest Grade Or Level Of School You Have Completed Or The Highest Degree You Have Received? [id number] Information not available 01/08/2023 What Is Your Occupation? [employer] Information not available 01/08/2023 Have There Been Any Changes To Your Family Or Social Situation? Yes Information no t available 01/08/2023 What Is The Fluoride Status Of Your Home? Non-fluoridate d Information not available 01/08/2023 Have You Recently Or Are You Planning To Travel To An Area With Zika Virus? No Information not available 01/08/2023 Do You Have A Medical Power Of Central Office Frame Wirer? No Information not available 01/08/2023 What Was The Date Of Your Most Recent Tobacco Screening? 01/08/2023 Information not available 01/08/2023 How Many Children Do You Have? 0 Information not available 01/08/2023 What Is Your Relationship Status? Single Information not available 01/08/2023 Are You Sexually Active? Yes Information not available 01/08/2023 Do You Have Smoke And Carbon Monoxide Detectors In Your Home? Yes Information not available 01/08/2023 Are You Passively Exposed To Smoke? No Information no t available 01/08/2023 Do You Or Have You Ever Used Smokeless Tobacco? Never Used Smokeless Tobacco Information not available 01/08/2023 Do You Feel Stressed (tense, Restless, Nervous, Or Anxious, Or Unable To Sleep At Night)? [id number] Information not available 01/08/2023 Do You Use Any Illicit Or Recreational Drugs? No Information not available 01/08/2023 Has Tobacco Cessation Counseling Been Provided? Yes Information not available 01/08/2023 On What Date Was Tobacco Cessation Counseling Provided? 01/08/2023 Information not available 01/08/2023 What Contraceptive Method Was Reported At Start Of This Visit? None Information not available 01/08/2023 What Contraceptive Method Was Reported At End Of This Visit? None Information not available 01/08/2023 Do You Or Have You Ever Used Any Other Forms Of Tobacco Or Nicotine? Yes Information not available 01/08/2023 How Many Years Have You Used E-cigarettes Or Vape? 2 Information not available 01/08/2023 What Is Your Status? Information no t available 01/08/2023 Sex: Female Functional Status Question Answer Note LastModified by Organizat ion Details LastModified Time Do you have difficulty walking or climbing stairs? No Information not available 01/08/2023 Do you have transportation difficulties? No Information not available 01/08/2023 Are you able to walk? YESWOREST Information not available 01/08/2023 Do you have difficulty doing errands alone? No Information not available 01/08/2023 Are you able to care for yourself? Yes Information not available 01/08/2023 Do you have difficulty dressing or bathing? No Information not available 01/08/2023 What is your exercise level? None Information not available 01/08/2023 Mental Status Question Answer Note LastModified by Organization D etails LastModified Time Do you have difficulty concentrating, remembering or making decisions? No Information no t available 01/08/2023 Family History Relationship Description Onset Age of this Age Resolved Age Notes LastModified by Organization Details LastModified Time Father Type 2 diabetes mellitus Not available 2022 09:16:51 Mother Type 2 diabetes mellitus Not available 2022 09:16:59 Medical History Condition Response Pancreatitis N Other N Atrial Fibrillation N congenital heart disease N Blood Diseases N Kidney Stones N Hyperthyroidism N Rheumatoid arthritis N Blood Transfusion N Erectile Dysfunction N amputation N Skin Lesions N COPD N Depression N Pneumonia N Incontinence N Murmur N Edema N Alzheimer's Disease N Migraine Headaches N Tobacco Abuse N Anxiety Disorder N Hemorrhoids N Obesity Y Vision or Eye Problems N Restless Leg Syndrome N Arthritis N Polyps N Infertility N Acid Reflux (GERD) N Cancer N Varicosities N Stroke N Tendonitis N Crohn's Disease N Hypercholesterolemia N Skin Cancer N Headaches N Fibromyalgia N Irritable Bowel Syndrome N Anal Fissure N Kidney Disease N Heart Problems N Ear or Hearing Problems N Hospitalizations N Gallstones N Kidney or Bladder Problems N Goiter N Acne N Eating Disorder N Wyatt's Esophagus N Hypertriglyceridemia N Constipation N Embolism N Vitamin B12 Deficiency N AIDS/HIV N Myocardial Infarction N Asthma N Mitral Valve Disorders N Vertigo N Hepatitis N Thyroid Cancer N Neuropathy N History of DVT N Chicken Pox N Autism Spectrum Disorder (ASD) N Von Willebrands Disease N Thrombophilias N Breast Cancer N Hernia N Plantar Fasciitis N Hypothyroidism N Lung Disease N Developmental or Behavioral Disorders N Defects or Inherited Disease N Breast Problem N Difficulty Swallowing N Ovarian Cyst N Anesthesia Complications N Testosterone Deficiency N Head Injury/Concussion N Interstitial Cystitis N Congenital Anomalies N Hypoglycemia N Blood clot N Vitamin D Deficiency N Cellulitis N Endometriosis N Bladder or Kidney Problems N Colorectal Cancer N Liver Disease N Schizophrenia N Panic Disorder N Spina Bifida N Osteoarthritis N Parkinson's Disease N STI N Esophagitis N Angina N Thyroid Problems N GI Problems N ADD/ADHD N Anemia N Multiple Sclerosis N Abnormal PAP N Lumbago N Mental Illness N Psychiatric Illness N Ovarian Cancer N Diabetes N Seizures/Epilepsy N Congestive Heart Failure (CHF) N Syncope N Hyperlipidemia N Insomnia N Eczema N Abuse/Domestic Violence N Attention Deficient Disorder N Dementia N Ulcerative colitis N Cerebrovascular Disease N Depression N Guillain-[place] N Sleep Apnea N Aneurysm N Bronchitis N Heart Disease N Suicidal Ideation N Pre-Eclampsia N Hypertension N Osteoporosis N Gynecological History Statement/Question Response Flow Moderate Date of LMP 11/20/2022 On BCP's at Conception? N STIs/STDs N HPV Vaccine Y Duration of Flow (days) 6 Current Control Method Age at Menarche 11 Frequency of Cycle (Q days) 30 Sexually Active? Y Menses Monthly Y Sexual Problems? N LMP Approximate Obstetrics History GPAL:G 1 P 0 0 1 0 Type Value Spontaneous 1 Total 1 Immunizations Vaccine Type Date Status Provider Name and Address Organization Details Recorded Time HPV9 11/20/2015 completed [place], [place] [facility] 01/22/2023 09:39:48 HPV9 03/31/2017 completed [place] [facility] 01/22/2023 09:39:48 IPV 2003 completed [place] [facility] 01/22/2023 09:39:48 IPV 02/05/2004 completed [place] [facility] 01/22/2023 09:39:48 IPV 02/26/2007 completed [place] [facility] 01/22/2023 09:39:48 MMR 06/07/2004 completed [place] [facility] 01/22/2023 09:39:48 MMR 02/26/2007 completed [place] [facility] 01/22/2023 09:39:48 Tdap 11/20/2015 completed [place] [facility] 01/22/2023 09:39:48 varicella 07/23/2010 completed [place] [facility] 01/22/2023 09:39:48 varicella 02/05/2004 completed [place] [facility] 01/22/2023 09:39:48 Hep B, adolescent or pediatric 2003 completed [place] [facility] 01/22/2023 09:39:48 Hep B, adolescent or pediatric 02/05/2004 completed [place] [facility] 01/22/2023 09:39:48 Hep A, ped/adol, 2 dose 11/20/2015 completed [place] [facility] 01/22/2023 09:39:48 Hep A, ped/adol, 2 dose 03/31/2017 completed [place] [facility] 01/22/2023 09:39:48 Hib (PRP-OMP) 2003 completed [place] [facility] 01/22/2023 09:39:48 Hib (PRP-OMP) 02/05/2004 completed [place] [facility] 01/22/2023 09:39:48 Hib (PRP-OMP) 2003 completed [place] [facility] 01/22/2023 09:39:48 meningococcal MCV4P 04/16/2021 completed Carlyle ia [place] [facility] 01/22/2023 09:39:48 meningococcal MCV4P 11/20/2015 completed Carlyle ia [place] [facility] 01/22/2023 09:39:48 DTaP, unspecified formulation 06/07/2004 completed Jessica [place] [facility] 01/22/2023 09:39:48 DTaP, unspecified formulation 2003 completed [place] [facility] 01/22/2023 09:39:48 DTaP, unspecified formulation 2003 completed [place] [facility] 01/22/2023 09:39:48 DTaP, unspecified formulation 02/26/2007 completed [place] [facility] 01/22/2023 09:39:48 DTaP-Hep B-IPV 2003 completed Jessica [place] [facility] 01/22/2023 09:39:48 Past Encounters Encounter ID Performer Location Encounter Start Date Encounter Closed Date Diagnosis/Indication Diagnosis SNOMED-CT Code Diagnosis ICD10 Code [id number] Maria Ines Ryan, SKIN INSTALLERNora Ross GUARDIAN AD LITEM 7 [facility] ASIF Garay [id number] 01/08/2023 08:35:31 01/08/2023 09:44:30 Routine care 846839633 Z34.01 Urine preg cecilia test positive 351975606 Z32.01 Maternal o besity complicating , childbirth and the puerperium, antepartum 9622234154 07 O99.211 Gestation period, 7 weeks 22998230 Z3A.01 Nausea 726048003 R11.0 Primigravida 744290469 Z 34.01 High risk 4720 0007 O09.91 Referral needed 17776870 9 Z76.89 [id number] Marie Pardo MD [place] [facility] [address] [place] [address] [place] [id number] 01/22/2023 08:20:38 01/22/2023 10:14:15 High risk 56467100 O09.891 Maternal o besity complicating , childbirth and the puerperium, antepartum 4587154886 07 O99.211 screening 2437 12826 Z36.87 [id number] Priya Carroll MS, RDN, LDN [place] [facility] [address] [place] [address] [place] [id number] 01/22/2023 08:20:38 01/22/2023 10:39:19 14404859 Z33.1 [id number] Vidal Ross GUARDIAN [facility] LITEM [address] [place] [address] [place] [id number] 02/12/2023 09:54:35 02/12/2023 11:24:11 Gestation period, 10 weeks 69975339 Z3A.10 Inevitable miscarriage 65947063 O03.4 [id number] DO Vandana Medina GUARD[facility]ITEM [address] [place] [address] [place] [id number] 02/19/2023 14:34:07 02/19/2023 15:28:19 Incomplete miscarriage 765208218 O03.4 [id number] DO Vandana Medina [facility] [address] [facility] [place] [id number] 03/12/2023 13:51:31 03/12/2023 14:55:17 Contraception care management 887761715 Z30.9 Complete miscarriage 156 371660 O03.9 Health Concerns Section Related Observation LastModified by Organization Detai ls LastModified Time None Recorded Concern Status LastModified by Organization Details LastModified Time None Recorded Advance Directives Directive N: Payers Encounter Date Sequence Insurance Name Policy Number Policy Philippe Covered Member ID Philippe Member ID Guarantor Name 01/22/2023 1 [employer] [facility] (MEDICAID HMO) Marisjason Garay [id number] Marisjason Garay 01/22/2023 1 [employer] [facility] (MEDICAID HMO) Marisdeepika Garay [id number] Maris Garay 02/12/2023 1 [employer] [facility] (MEDICAID HMO) Marisjason Garay [id number] Maris Garay 02/19/2023 1 [employer] [facility] (MEDICAID HMO) Maris Garay [id number] Maris Garay 03/12/2023 1 [employer] [facility] (MEDICAID HMO) Marisjason Garay [id number] Maris Garay Notes Date Note Type Note Provider Name and Address Organization Details Recorded Time 3 text/htm l Initial Nutrition assessment for:pregnancyPatient was referred by:Jody Kurtz history: Medical History:obesity,Medications: vitamin/FeFamily History:DMPersonal History Social History: Employment:yes-[employer]Smoking Status:non, uses e-cigarettesDiet Recall Breakfast:portillo/egg/cheese on a buncereal-sugared cereal, whole milkegg and fried potatoesSnack:donuts or crumb cakesLunch:salad from subway or sandwich and the meat is heated upSnack:not usuallyDinner:spaghetti w/meat sauce and [place] toaststeak, green beans and mac and cheeseSnack:chips if anythingBeverages:Propel- 2 bottleswater with her medicinediet coke- 12 oz or lessno coffeeJuicy JuiceNotes and/or Diet History:Has nausea but hasn't had any vomitingPhysical Activity/Sleep:active at workLabs:A1C 5.2Energy Needs:64.5 , 176#, BMI 29.[address] calories (25-30 kcals/kg/ABW)Nutrition Diagnosis: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 2) Include protien with meals and snacks. 3) Increase intake of vegetable, whole grains and lean protien. 4) Increase water intake.Nutrition Prescription:My Plate/ nutritionIntervention #1: Modify distribution, type, amount of food and nutrients within a meal or at specified times ND1.2Follow diet prescriptionIntervention #2: Nutrition Education E1.1Discussed My Plate/balanced meals, appropriate weight gain, hydration, food safety and benefits of exercise.Intervention #3: Self monitoring C2.3 P: Increased nutrient needsE: Teen pregnancyS: Diet recall and discussionMonitoring and Evaluation:Food/Nutrient-rel ated history outcomes: Types of food/meals Labs: Anthropometric:weight changesHandouts provided:My Plate/ nutrition guidelinesSpent{{20* 30 40 5 0 60}}minutes of face to face time with patient. Priya Carroll MS, RDN, LDN [address], [place], [address], [place] [facility] 01/23/2023 09:23:47 3 text/htm l See Flow Sheet Marie Pardo MD [address], [place], [address], [place] [facility] 01/22/2023 10:59:15 3 text/htm l Ob Bring in for bleeding and cramping Vidal Figgins null[place] [facility] 02/12/2023 11:23:31 3 text/htm l Patient here for repeat u/s for miscarriagestarted bleeding 02/10/23 still today 02/19/23 Previous visit was an inevitable miscarriage. Today US showed an heterogenous lining, no IUP Bleeding is light and is slowly decreasing. Declines D&C. BHCG today. Will schedule repeat US in one week and possibly repeat beta. Declined contraception, hoping to conceive after next cycle. Will continue vitamins. Given precautions for depression. Reports doing well and has fewer episodes of crying. Carmel Nunez, [address], [place], [address], [place] [facility] 02/19/2023 15:30:43 3 text/htm l Pt presents today for an US and followup on miscarriage. Doing well no complaints.//BT Reviewed US findings: stripe homogenous and thin, resolution of miscarriage Discussed future conception, hoping to conceive after next cycle. Will resume PNV. Carmel Nunez, [address], [place], [address], [place] - [facility] 03/12/2023 19:13:59 OBGyn Episode Ob Episode Information Episode Created Date Number of Fetuses Patient Bloodtype Patient rh Status Prepregnancy Weight lbs Domestic Partner Domestic Partner Phone Father Name Service Liaison Representative Status 01/09/20 23 1 O Positive 179 Arnaud, 21 [employer] CLOSED Fetus Data First Name Last Name Admitted to NICU Weight (g) Sex Living Outcome Pediatric Complications Fetus ID Race Codes Race Delivery Type , Spontane ous Problems Problem Notes Lives- [facility]- [address] [facility]/no circ/kidcare/unsure of pain med planUltrasound:01-22-2022: 7+6 ---> 09-04-2023. Reset ABIMBOLA : US with nonviable IUP 8+3 wk GA c/w miscarriage/KRA Problem Name Start Date End Date Resolution Snomed Code Not e Referral placed [id number] [x]W IC- proof of preg faxed//cd[x]dietic helder-placed at obhx-has a dentist she sees regularly Maternal obesity complicating , childbirth and the puerperium, antepartum 01/08/2023 [id number] [ ] A at 12wks[ ]Early 1hr gtt: mother and father both have DMll Contraception care management [id number] depo screening [id number] [ ]Mat21 desires at obpe (as of 01/22)[ ]AFP-[ ]CF-desires will check pA 01/22, draw at ob Body mass index 30+ - obesity [id number] BMI: 30.3starti ng wgt: 179recommended wgt gain: 11-20 Active immunization [id number] [-]Covid-declined at obx[ ]Tdap-[-]Flu-decli juanita at obx Abimbola Calculation Initial Abimbola Date Initial Exam Date Initial Exam Provider Initial Ultrasound Date Last Menstrual Period Date Ultra Sound Weeks Gestation 09/04/2023 01/08/2023 01/22/2023 11/20/2022 7 Eighteen To Twenty Week Abimbola Update Ultra Sound Date Fundal Height At Umbil Quickening Date Ultra Sound Latest Weeks Gestation Final Abimbola Confirmed By Final Abimbola Confirmed Date Final Abimbola Date Ultra Sound Latest Days Gestation 0 [email or web address] 01/22/2023 09/04/19 24 0 Pre- Flowsheet Flowsheet Date 01/08/2023 Cuevas Score Blood Edema Fundus Height Fundus Units Glucose Ketones Leukocytes Nitrite Labor Signs Protein Cervic Dilation Cervic Effacement Cervic Station neg none none negative none Negative none neg Type Weight in lbs BP Diastolic BP Location Tested BP Systolic BP Type 80 122 sitting Fetus Heart Rate Present Fetus Movement A No Comments Maris is here for obx appt . They were planning then stopped trying and she became . Took test last week after they returned from [place]. She gave an approximate date for LMP. No vb or pain. Reviewed plan of care w/pt and boyfriend. She is having insurance problems, says her dad may have stopped her insurance due to . She does live w/bf. Discussed NIPT testing and they would like it. She hasn't started PNV yet, sent rx today. Having nausea but manageable, no vomiting, sent rx for B6. She is a Mtn Dew drinker and uses vape, strongly encouraged cessation of both! Discussed tobacco/caffeine effects on . Reviewed a proper diet/nutrition/wgt gain during . No q/c at end of visit. She will RTC next wk for dating u/s to confirm ABIMBOLA.AD Flowsheet Date 01/22/2023 Cuevas Score Blood Edema Fundus Height Fundus Units Glucose Ketones Leukocytes Nitrite Labor Signs Protein Cervic Dilation Cervic Effacement Cervic Station Type Weight in lbs BP Diastolic BP Location Tested BP Systolic BP Type Fetus Heart Rate Present Fetus Movement Comments Flowsheet Date 01/22/2023 Cuevas Score Blood Edema Fundus Height Fundus Units Glucose Ketones Leukocytes Nitrite Labor Signs Protein Cervic Dilation Cervic Effacement Cervic Station neg none none negative none Negative neg Type Weight in lbs BP Diastolic BP Location Tested BP Systolic BP Type 70 118 Fetus Heart Rate Present A Present Fetus Movement Comments Dating US, some nausea but n o vomiting otherwise doing well. Now has [place] medicaid. //AA disc new abimbola at 7+6---> 09/03. No bleeding or pain. Excited about . Reviewed negative OB history labs. Will want NIPT and CF OB physical next visit. Had questions regarding coverage now that they have medical card. will check re PA. . FOB had questions regarding cardiac risk for baby as he has tachycardia without structural problems, discussed that should not be increased risk for baby.l disc need for asa at 12 wk, declines flu shot/lls Flowsheet Date 02/12/2023 Cuevas Score Blood Edema Fundus Height Fundus Units Glucose Ketones Leukocytes Nitrite Labor Signs Protein Cervic Dilation Cervic Effacement Cervic Station 3+ none none negative none Negative neg Type Weight in lbs BP Diastolic BP Location Tested BP Systolic BP Type 68 118 sitting Fetus Heart Rate Present Fetus Movement Comments Complaint of bleeding and cr amping. Feels like she is on her period. AF//Maris is a bring in today for bleeding and cramping. Has changed two pads since yesterday. US with nonviable IUP measuring 8+3 wk GA. No FCA. Cervix open. No signs of infection or hemorrhage. Discussed options for management. She desires expectant for now. Check CBC. Known rh positive. F/u in 1 wk with US. Given strict precautions for bleeding/infection. KRA Menstrual History Last Menstrual Date Menses Monthly On Bcp Conception Prior Menses Frequency Hcg Plus Date Menarche Onset Age 0811/20/2022 true false 30 3 13 Genetic Screening And Infection History Question Response Note Patient's Age Will Be 35 Yea rs Or Older At Estimated Date of Delivery false Thalassemia (Lebanese, Comoran, Mediterranean, Or Background): MCV < 80 false Neural Tube Defect (Meningom yelocele, Spina Bifida, Or Anencephaly) false Congenital Heart Defect false Down Syndrome false William-Sachs (eg, Jew, Cajun , Slovak-Cook Islander) false Meredith Disease false Sickle Cell Disease Or Trait () false Hemophilia Or Other Blood Disorders false Muscular Dystrophy false Cystic Fibrosis false Evelio's Chorea false Mental Retardation/Autism false If Yes, Was Person Tested For Fragile X? false Other Inherited Genetic Or C hromosomal Disorder true 2 sets of twins on maternal side Maternal Metabolic Disorder (eg, Type 1 Diabetes, PKU) false Patient Or Baby's Father Had A Child With Defects Not Listed Above false Recurrent Loss, Or A Stillbirth false Medications (including Suppl ements, Vitamins, Herbs, OTC Drugs), Illicit/Recreational Drugs, Alcohol true PNV If Yes, Agent(s) And Strength/Dosage false Any Other Genetic History false Live With Someone With TB Or Exposed To TB false Patient Or Partner Has Histo ry Of Genital Herpes false Rash Or Viral Illness Since Last Menstrual Period false History Of STD, Gonorrhea, C hlamydia, HPV, Syphilis false Other Infection History false History of HIV false History of Hepatitis false Prior GBS-infected child false Recent Travel Outside of Country false Plans and Education First Trimester Discussed Date Discussion Item Discussion Note Discuss ed By 01/08/2023 Desire for planned 01/08/2023 Alcohol no 01/08/2023 Illicit/recreational drugs no a [email or web address] 01/08/2023 Nutrition discussed 01/08/2023 Weight gain counseling discussed 01/08/2023 Intimate Partner Violence no ad uk01/08/2023 Unstable Housing no 01/08/2023 Use of any medicatio ns (including supplements, vitamins, herbs, or OTC drugs) discussed 01/08/2023 Avoidance of saunas or hot tubs discussed 01/08/2023 Indications for ultrasonography discussed 01/08/2023 Comminucation Barriers no 01/08/2023 Anticipated course o f care discussed 01/08/2023 Toxoplasmosis precau tions (cats/raw meat) discussed 01/08/2023 Sexual activity discussed 01/08/2023 Exercise discussed 01/08/2023 Tobacco/smoking cess ation counseling (ask, advise, assess, assist, and arrange) vape- for about 2 years, encouraged cessation 01/08/2023 Barriers to Care no 01/08/2023 Environmental/work hazards discussed a [place]01/08/2023 Depression/Anxiety ( should be performed at least once during period) no 01/08/2023 WIC/Hands Referral referral sent 01/08/2023 Nutrition counseling ; special diet; dietary precautions (mercury, listeriosis) discussed 01/08/2023 Dental Care / Refer to Dentist idania kelly- has one in [place] 01/08/2023 Seat belt use discussed 01/08/2023 Childbirth classes/h ospital facilities discussed 01/08/2023 discussed 01/08/2023 Screening for aneuploidy discussed Second Trimester Discussed Date Discussion Item Discussion Note Discuss ed By Third Trimester Discussed Date Discussion Item Discussion Note Discuss ed By Delivery Information Delivery Date Delivery Type Labor Anesthesia Weeks Gestation Incision Type Labor Labor Length Hrs Delivered By Post Complications Tubal Sterilization Discharge Date Comments 3 10.6 SAB Discharge Information Feeding Method Contraceptive Method Maternal HG B and HCT Levels
--- OUTSIDE RECORDS SUMMARY | 2024-03-01 04:59 | XMS_ITS | Referral Summary ---
Author Organization [facility] Address [address] [place] [address] Care Team Providers Care Barrel And Receiver Aligner Name Role Phone Ana Paula Andujar APRN Primary Care Provider + [phone] Allergies No known active allergies Social History [...] Date Daniel rded Speak language other than [place] Citizen at home Not on file 05/02/2023 Want [...] 02/13/2022 7:26 PM EDT Plan of Treatment Not on file Insurance [employer] MEDICAID OF [place] Care Teams Barrel And Receiver Aligner Relationship Specialty Start Date End Date Ana Paula Andujar, TICKER INSTALLER PCP - General Family Medicine 02/13/22
--- OUTSIDE RECORDS SUMMARY | 2024-03-01 04:59 | XMS_ITS | Data Portability ---
Author Organization [facility] [employer] [place] Address [address] [place] [address] Assessment Encounter Date Assessment Date Assessment LastModified by Organization Details LastModified Time 11/20/2022 11/20/2022 Patient with continued and prolonged symptoms. Will treat with amoxicillin as noted for 7 days. Will also begin patient on cetirizine for seasonal allergy treatment. Advised to take dnnj-ycy-qplrf er Tylenol or Motrin for pain or fever. Instructed to increase fluid and finish full course of antibiotics even if she felt better. Advised to return if symptoms or not resolved after treatment. [email or web address] Not available 11/20/2022 13:20:17 Plan of Treatment Reminders Order Date Submit Date Provider Last Modified By Organization Details Last Modified Time Details Appointments None recorded. Lab test, urine [email or web address], [place], [address], 4 14:07:36 beta-HCG, qualitative , serum or plasma 2023 024 [facility], [address], [place], [address], 4 07:47:32 Referral obstetricia n and gynecologis t referral 2023 024 SAAD Kirkpatrick DO, [address], [address], [place], [address], 4 17:11:23 Procedures None recorded. Surgeries None recorded. Imaging None recorded. Medication Orders cetirizine 10 mg tablet 2022 024 [facility], [address] [place] [address], [id number], 4 14:57:20 amoxicillin 500 mg capsule 2022 023 [address] [facility], [address] [place] [address], [id number], 4 13:24:41 28 mg iron-800 mcg tablet 2023 024 [facility], [address] [place] [address], [id number], 4 14:51:25 Patient TargetsNo targets recorded. Patient InstructionsNo instructions recorded. Reason for Referral [facility] Referral for Referring Physician: Ana Paula Andujar, Family Medicine, Encounter Date: 07/13/2023 Results Created Date Observation Date Name Description Value Unit Range Abnormal Flag Note LastModifiedBy Organization Detail LastModifiedTime 07/13/1907/14/2023 HCG,T OTAL, QL W/REF L TO QN HCG, total, ql POSITI VE see note: abnormal Refer ence Range : Refer ence Range Non-P regna nt: Negat miriam Pregn ant: Posit miriam Not Available [facility] [address] [facility], [place], [address], 07/14/2023 12:08:59 07/13/1907/14/2023 HCG, TOTAL , [place] [address] mIU/m L high Refer ence Range Nonpr egnan t or preme nopau dallin <5 Postm enopa usal <10 Value s from diffe rent assay metho ds may vary. The use of this assay to monit or or to diagn ose patie nts with cance r or any condi tion unrel ated to pregn chio has not been clear ed or appro nikole by the FDA or the [facility] actur er of the assay . Not Available [facility] [facility], [place], [address], 07/14/2023 12:09:00 07/13/19 24 07/13/2023 pregn chio test, urine HCG positi ve Not Available [facility] - [address], [place], [address], 07/13/2023 13:25:25 02/18/20 22 02/17/2022 XR, sacru m + coccy x No observ ation record ed. [place] [address], [place], [address], 02/17/2022 17:29:37 02/18/20 22 02/17/2022 XR, ankle No observ ation record ed. [address], [place], [address], 02/17/2022 17:29:15 02/18/20 22 02/17/2022 XR, ankle No observ ation record ed. [address], [place], [address], 02/17/2022 17:29:05 02/13/20 23 02/12/2023 US, trans vagin al No observ ation record ed. [place] [id number], [place], [address], 02/13/2023 08:50:29 10/15/19 24 10/14/2023 US, obste tric No observ ation record ed. [address], [place], [address], 10/20/2023 12:56:22 Result Notes None recorded. Problems Name Problem SNOMED Code Status Onset Date Resolution Date Notes Provider Name and Address Organization Details Recorded Time Acute sinusiti s 41735340 Active 2022 CORBIN [address], [address] , [employer] 3 13:02:47 Seasonal allergy 334650103 Active [address], [address] , [employer]. 3 13:03:23 General examinat ion of patient Active 2021 Not Available [facility] 2 22:22:16 Body mass index 25-29 - overweig ht 512450029 Active 2020 Problem Code: Z68.27; Problem Code Type: ICD-10; Not Available [facility] 2 22:22:17 Uses depot contrace ption 608441568 Completed 202007/24/2021 PELON knutson, [employer]. 2 15:12:45 Problem Notes None recorded. Procedures Surgical History Date Name Laterality Status Provider Name and Address Organization Details Recorded Time dental surgical procedure completed ALEXANDERSaad LYNNETTEИРИНА [employer]. 01/08/2022 15:15:21 Imaging Results Imaging Date Name Status LastModified by Organization Details LastModified Time 02/17/2022 XR, sacrum + coccyx completed [place] [address], [place], [address], 02/17/2022 17:29:37 02/17/2022 XR, ankle completed [email or web address] [address], [place], [place], [address], 02/17/2022 17:29:15 02/17/2022 XR, ankle completed [email or web address] [address], [place], [address], 02/17/2022 17:29:05 02/12/2023 US, transvaginal completed [email or web address] [facility] [address], [place], [address], 02/13/2023 08:50:29 10/14/2023 US, obstetric completed [email or web address] [facility] [address], [place], [address], 10/20/2023 12:56:22 Procedure Notes None recorded. Medical Equipment None Reported. Allergies No known drug allergies Medications Name Sig Start Date Stop Date Status Note LastModified by Organization Details LastModified Time cyclobenzap rine 10 mg tablet 11/20 completed Not Available Not Available Not Available amoxicillin 500 mg capsule TAKE 1 CAPSULE EVERY 8 HOURS FOR 7 DAYS 07/12 completed Not Available Not Available Not Available cetirizine 10 mg tablet Take 1 tablet every day by oral route. 07/12 completed Not Available Not Available Not Available ibuprofen 800 mg tablet TAKE 1 TABLET EVERY 6 HOURS NEEDED FOR PAIN 01/08 completed Not Available Not Available Not Available alprazolam 1 mg tablet TAKE 1 TABLET 1 HOUR BEFORE SURGERY 01/08 completed Not Available Not Available Not Available oxycodone-a cetaminophe n 5 mg-325 mg tablet TAKE 1 TABLET EVERY 6 HOURS NEEDED FOR PAIN 01/08 completed Not Available Not Available Not Available progesteron e micronized 200 mg capsule active Not Available Not Available Not Available ibuprofen 600 mg tablet TAKE 1 TABLET BY MOUTH EVERY 6 HOURS NEEDED FOR MODERATE PAIN 01/08 completed Not Available Not Available Not Available amoxicillin 875 mg-potassiu m clavulanate 125 mg tablet TAKE 1 TABLET BY MOUTH TWICE DAILY 01/08 completed Not Available Not Available Not Available Depo-Education Faculty Member a 150 mg/mL intramuscul ar syringe inject 1 millilite r (150 mg) by intramusc ular route every 3 months 01/08 completed Not Available Not Available Not Available Multivitami ns 28 mg iron-800 mcg tablet TAKE ONE TABLET BY MOUTH DAILY active Not Available Not Available No t Available Vitals Date Recorded Body weight Body mass index (BMI) Percentile per age and sex Body mass index (BMI) Body height Oxygen saturation Oxygen saturation in Arterial blood by Pulse oximetry Heart rate Systolic blood pressure Diastolic blood pressure Provider Name and Address Organization Details Last Updated DateTime 2 94520.8 2 g 93 % 29.2 kg/m2 165.1 cm 99 % 99 % 99 /min 128 mm[Hg] 79 mm[Hg] PELON CHURCHИРИНА [employer] 2 15:16:37 Date Recorded Body height Body temperature Heart rate Oxygen saturation Oxygen saturation in Arterial blood by Pulse oximetry Body mass index (BMI) Percentile per age and sex Body mass index (BMI) Body weight Systolic blood pressure Diastolic blood pressure Provider Name and Address Organization Details Last Updated DateTime 3 165.1 cm 98.1 [degF] 71 /min 97 % 97 % 93 % 29.8 kg/m2 16434.0 3 g 124 mm[Hg] 75 mm[Hg] LU [employer] 3 12:54:09 Date Recorded Body height Heart rate Oxygen saturation Oxygen saturation in Arterial blood by Pulse oximetry Systolic blood pressure Diastolic blood pressure Provider Name and Address Organization Details Last Updated DateTime 3 165.1 cm 93 /min 100 % 100 % 134 mm[Hg] 80 mm[Hg] [facility] [employer] 3 14:39:09 Date Recorded Body height Body mass index (BMI) Body mass index (BMI) Percentile per age and sex Body weight Body temperature Heart rate Oxygen saturation Oxygen saturation in Arterial blood by Pulse oximetry Systolic blood pressure Diastolic blood pressure Provider Name and Address Organization Details Last Updated DateTime 4 165.1 cm 30.9 kg/m2 94 % 38437.4 6 g 98.7 [degF] 109 /min 98 % 98 % 138 mm[Hg] 80 mm[Hg] Sailaja Duarte [employer] 4 13:24:36 Social History Question Answer Notes LastModified by Organizat ion Details LastModified Time Tobacco Smoking Status Never Smoker PELON CHURCHИРИНА [facility] [employer] 01/08/2022 15:13:33 Do You Have An Advance Directive? No [email or web address] Information not available 11/20/2022 Is Your Home Air Conditioned? Yes Information not available 01/08/2022 What Is Your Level Of Alcohol Consumption? None Information not available 01/08/2022 Are You Blind Or Do You Have Difficulty Seeing? No [email or web address] Information not available 11/20/2022 What Is Your Level Of Caffeine Consumption? Moderate [email or web address] Information not available 11/20/2022 Are You A Caregiver? No Information not available 01/08/2022 What Type Of Food Prep Worker Do You Use? None Information not available 01/08/2022 In The 14 Days Before Symptom Onset, Have You Had Close Contact With A Laboratory-confir med COVID-19 While That Case Was Ill? No Information not available 07/13/2023 In The 14 Days Before Symptom Onset, Have You Had Close Contact With A Person Who Is Under Investigation For COVID-19 While That Person Was Ill? No Information not available 07/13/2023 Have You Been To An Area Known To Be High Risk For COVID-19? No [email or web address] Information not available 11/20/2022 Are You Currently Employed? Yes Information not available 01/08/2022 Are You Deaf Or Do You Have Serious Difficulty Hearing? No [email or web address] Information not available 11/20/2022 What Type Of Diet Are You Following? REGULAR [email or web address] Information not available 11/20/2022 Do You Or Have You Ever Used E-cigarettes Or Vape? Current User Of Electronic Cigarettes [email or web address] Information not available 11/20/2022 What Is The Highest Grade Or Level Of School You Have Completed Or The Highest Degree You Have Received? MG02591-1 [email or web address] Information not available 11/20/2022 Who Is Your Employer? [employer] Information not available 01/08/2022 Have There Been Any Changes To Your Family Or Social Situation? No Information no t available 01/08/2022 Which Of Your Hands Is Dominant? Right Information not available 11/20/2022 What Is Your Home Situation? Mother Information not available 01/08/2022 Do You Have A Medical Power Of Steam Cleaner? No [email or web address] Information not available 11/20/2022 What Was The Date Of Your Most Recent Tobacco Screening? 07/13/2023 Information not available 07/13/2023 What Is Your Relationship Status? Single Information not available 01/08/2022 Do You Use Your Seat Belt Or Car Seat Routinely? Yes [email or web address] Information not available 11/20/2022 Do You Have Any Siblings? 7 Information not available 01/08/2022 Do You Have Smoke And Carbon Monoxide Detectors In Your Home? Yes Information not available 01/08/2022 Are You Passively Exposed To Smoke? No Information no t available 01/08/2022 Do You Or Have You Ever Used Smokeless Tobacco? Never Used Smokeless Tobacco [email or web address] Information not available 11/20/2022 Are There Any Smokers In Your House? No Information not available 01/08/2022 Do You Use Any Illicit Or Recreational Drugs? No Information not available 01/08/2022 Has Tobacco Cessation Counseling Been Provided? No [email or web address] Information not available 11/20/2022 Have You Recently Traveled Abroad? No Information not available 11/20/2022 Are You Currently In School? No [email or web address] Information not available 11/20/2022 Do You Have Any Dietary Restrictions? No [email or web address] Information not available 11/20/2022 Do You Or Have You Ever Used Any Other Forms Of Tobacco Or Nicotine? Yes Information not available 11/20/2022 Sex: Female Functional Status Question Answer Note LastModified by Organizat ion Details LastModified Time Do you have difficulty walking or climbing stairs? No [email or web address] Information not available 11/20/2022 Do you have transportation difficulties? No [email or web address] Information not available 11/20/2022 Are you able to walk? YESWOREST [email or web address] Information not available 11/20/2022 Do you have difficulty doing errands alone? No [email or web address] Information not available 11/20/2022 Are you able to care for yourself? Yes [email or web address] Information not available 11/20/2022 Do you have difficulty dressing or bathing? No Information not available 11/20/2022 Mental Status Question Answer Note LastModified by Organization D etails LastModified Time Do you have difficulty concentrating, remembering or making decisions? No [email or web address] Information no t available 11/20/2022 Family History Relationship Description Onset Age of this Age Resolved Age Notes LastModified by Organization Details LastModified Time Father Family history of diabetes mellitus type 2 [email or web address] Not available 01/2023 12:54:56 Father Family history of Hypertension Not available 11/20/2022 12:55:05 Mother Family history of drug abuse [email or web address] Not available 12:55:15 Mother Family history of diabetes mellitus type 2 [email or web address] Not available 01/2023 12:54:58 Medical History Condition Response Hospitalizations N Emergency room visit since last appointm ent. N Gynecological HistoryNo gynecological history recorded. Obstetrics History GPAL:G 0 P 0 0 0 0 Immunizations Vaccine Type Date Status Provider Name and Address Organization Details Recorded Time HPV9 11/20/2015 completed LU knutson, [employer] 11/20/2022 12:58:05 HPV9 03/31/2017 completed LU knutson, [employer] 11/20/2022 12:58:05 IPV 2003 completed LU knutson, [employer] 11/20/2022 12:58:05 IPV 02/05/2004 completed LU knutson, [employer] 11/20/2022 12:58:05 IPV 02/26/2007 completed LU knutson, [employer] 11/20/2022 12:58:05 MMR 06/07/2004 completed LU knutson, [employer] 11/20/2022 12:58:05 MMR 02/26/2007 completed LU knutson, [employer] 11/20/2022 12:58:05 Tdap 11/20/2015 completed LU knutson, [employer] 11/20/2022 12:58:05 varicella 07/23/2010 completed LU knutson, [employer] 11/20/2022 12:58:05 varicella 02/05/2004 completed LU PACE null, [employer] 11/20/2022 12:58:05 Hep B, adolescent or pediatric 2003 completed LU PACE null, [employer] 11/20/2022 12:58:05 Hep B, adolescent or pediatric 02/05/2004 completed LU PACE null, [employer] 11/20/2022 12:58:05 Hep A, ped/adol, 2 dose 11/20/2015 completed LU PACE null, [employer] 11/20/2022 12:58:05 Hep A, ped/adol, 2 dose 03/31/2017 completed LU PACE null, [employer] 11/20/2022 12:58:05 Hib (PRP-OMP) 2003 completed LU PACE null, [employer] 11/20/2022 12:58:05 Hib (PRP-OMP) 02/05/2004 completed LU PACE null, [employer] 11/20/2022 12:58:05 Hib (PRP-OMP) 2003 completed LU PACE null, [employer] 11/20/2022 12:58:05 meningococcal MCV4P 04/16/2021 completed KO E PACE null, [employer] 11/20/2022 12:58:05 meningococcal MCV4P 11/20/2015 completed KO E PACE null, [employer] 11/20/2022 12:58:05 DTaP, unspecified formulation 06/07/2004 completed LU PACE null, [employer] 11/20/2022 12:58:05 DTaP, unspecified formulation 2003 completed LU PACE null, [employer] 11/20/2022 12:58:05 DTaP, unspecified formulation 2003 completed LU PACE null, [employer] 11/20/2022 12:58:05 DTaP, unspecified formulation 02/26/2007 completed LU knutson, [facility] 11/20/2022 12:58:05 DTaP-Hep B-IPV 2003 completed LU [facility]utson [facility] 11/20/2022 12:58:05 Past Encounters Encounter ID Performer Location Encounter Start Date Encounter Closed Date Diagnosis/Indication Diagnosis SNOMED-CT Code Diagnosis ICD10 Code [id number] Ana Paula Andujar [place] [id number] 01/08/2022 15:03:23 01/08/2022 16:05:24 Uses depot contraception 082246548 Z30.42 [id number] CORBIN DARLING [place] [id number] 11/20/2022 12:44:33 11/20/2022 13:04:25 Acute sinusitis 76864179 J01.90 Seasonal allergy 5307041 04 J30.2 [id number] LU PACE [place] [id number] 01/15/2023 14:19:48 01/15/2023 15:07:12 Headache 05171265 R51.9 [id number] Ana Paula Andujar [place] [address] 0 07/13/2023 13:19:43 07/13/2023 14:21:13 61110652 Z33.1 Intrauteri ne 27158622 Z34.91 Health Concerns Section Related Observation LastModified by Organization Detai ls LastModified Time None Recorded Concern Status LastModified by Organization Details LastModified Time None Recorded Advance Directives Directive N: Payers Encounter Date Sequence Insurance Name Policy Number Policy Philippe Covered Member ID Philippe Member ID Guarantor Name 01/08/2022 1 [employer] [facility] (MEDICAID HMO) Maris Garay [id number] Maris Garay 11/20/2022 1 *SELF PAY* Jewell Garay 01/15/2023 1 [employer] - MULTIPLAN (PPO) Maris Garay [id number] Maris Garay 07/13/2023 1 [employer] - [employer] (PPO) Maris Garay [id number] Maris Garay Notes Date Note Type Note Provider Name and Address Organization Details Recorded Time 01/08/2022 text/html Angina/Chest PainReported bypatient.Location :does not radiate Quality:sharp Severity:mild Duration:typical duration is 1 seconds Onset/Timing:has noted for months Context:positional Aggravating Factors:position change Associated Symptoms:no dyspnea; no cough; no decrease in exercise capacity; no nocturnal episodes; no resting episodes; no associated palpitations; no associated dizziness; no weakness; no rigor; no fever; no muscle aches; no joint pain; no peripheral edema; no hemoptysisNotes:He re for scheduled Depo injection. However states she does not want to continue taking Depo anymore. States she has had anterior bilateral chest discomfort with movement for the past 3 months and she attributes this to starting Depo. Ana Paula Andujar APRN [address] [place], [address], [employer] 01/16/2022 17:21:07 11/20/2022 text/html Sinus issues ove r the past two weeks. Cough with yellow production. No N/V/D. Not on any medicines at this time. CORBIN DARLING, SENIOR CARE SPECIALIST-BC [address] [place], [address], [employer] 11/20/2022 13:20:43 07/13/2023 text/html LMP 05/26- 05/30. G2, P 0, Ab 1. Had a miscarriage last fall wither first . She is really unsure why. She reports this was a planned . She vapes, does not drink ETOH. Has not been taking a vitamin. Ana Paula Andujar APRN [address] [place], [address], [employer] 07/13/2023 15:03:39 OBGyn Episode No OBEpisode recorded.
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
[2024-03-01 06:07] LABS: Basophils % 0.4 % (0.1-2.0); Eosinophils # 0.1 K/mm3 (0.0-0.4); Eosinophils % 0.5 % (0.1-12.0); Hematocrit 36.4 % (37.0-47.0); Hemoglobin 12.8 g/dL (12.2-16.2); Lymphocytes # 2.3 K/mm3 (0.7-4.5); Lymphocytes % 19.3 % (10-50); Mean Corpuscular HGB Conc 35.1 g/dL (31.8-35.4); Mean Corpuscular Hemoglobin 31.6 pg (27.0-31.2); Mean Corpuscular Volume 90.1 fl (81-99); Mean Platelet Volume 10.9 fl (7.4-10.4); Monocytes # 0.7 K/mm3 (0.1-1.0); Monocytes % 6.2 % (1.7-9.3); Neutrophils # 8.6 K/mm3 (1.8-7.8); Neutrophils % 73.6 % (37.0-80.0); Platelet Count 232 K/mm3 (142-424); Red Blood Count 4.04 M/mm3 (4.20-5.40); Red Cell Distribution Width 13.8 % (11.5-17.5); White Blood Count 11.7 K/mm3 (4.8-10.8)
[2024-03-01 06:16] LABS: Alanine Aminotransferase 23 U/L (12-78); Albumin Level 3.3 g/dl (3.5-5.0); Alkaline Phosphatase 230 U/L (38-126); Anion Gap 13.4 mEq/L (5-15); Aspartate Amino Transferase 27 U/L (14-36); Bilirubin,Total 0.6 mg/dl (0.2-1.3); Blood Urea Nitrogen 4 mg/dl (7-17); Calcium 9.1 mg/dl (8.4-10.2); Carbon Dioxide 17 mmol/L (22.0-30.0); Chloride 110 mmol/L (98-107); Creatinine Clearance Estimated 336 mL/min (50-200); Estimated Glomerular Filt Rate 201 ml/min (>60); GFR (African American) 244 ML/MIN (>60); Globulin 3.2 g/dL (1.3-3.2); Glucose 74 mg/dl (74-100); Potassium 3.4 mmoL/L (3.5-5.1); Sodium 137 mmol/L (136-145); Total Protein,Serum 6.5 g/dl (6.3-8.2)
[2024-03-01] MEDS: LACTATED RINGERS 1000ML 1,000 ML 500 ML IV ×2 (06:17→06:54)
[2024-03-01] MEDS: ONDANSETRON 4MG/2ML VIAL 4 MG IV (06:17)
--- NOTE | 2024-03-01 07:05 | P.PNANES_ITS ---
[facility] Disclaimer: The information contained in this section may have been updated after the patient was seen, as this information can be updated by other users. Medical History Nausea/vomiting in Spontaneous Surgical History [place] teeth extracted Family History Grandfather Cancer Grandmother Cancer Other Diabetes Social History Smoking Status: Current every day smoker tobacco type: e-cigarettes alcohol intake: never substance use type: denies use current occupational status: other Travel in the last 8 weeks: None [facility] Anesthesia Checklist Patient Identification Patient Identification: Arm Band and Verbal (Name & ) Structural Data Admitted From: Home Planned Operative Procedure/s: C/section Consent for Planned Operative Procedure(s) Verified: Yes Verified Documents: Surgical Consent and History and Physical NPO Status Verified Time NPO: 00:00 Additional verifications Patient : Yes Anesthesia Reactions: No Airway Assessment Mallampati Score:: Class II C-Spine Mobility Assessed: Yes TMJ Mobility Assessed: Yes Dentition: Good Dentition Neurological Assessment Level of Consciousness: Awake Hx Seizures: No Numbness or tingling in extremities: No Anesthesia Plan Anesthesia Risk discussed: Yes Anesthesia Plan: Verified ASA Class: II Anesthesia Type: Spinal
--- NOTE | 2024-03-01 07:23 | P.HP_ITS ---
OB - H&P: HPI Antepartum History of Present Illness Chief complaint: Scheduled secondary to breech presentation History of present illness: Ms Maris Garay is a 19 yo at 39w1d who presents to [facility] for scheduled primary secondary to breech presentation. She has had good care. Bedside ultrasound this morning confirmed baby still breech. History of Present Criteria for establishing EDC:: based on 1st trimester US only care: good care Ultrasounds: normal mid trimester US Obstetrical complications: none Medical complications: none Labs Blood type: O (+) positive Rubella: immune RPR/VDRL: nonreactive HBsAG: negative PFSH [facility] Disclaimer: The information contained in this section may have been updated after the patient was seen, as this information can be updated by other users. Medical History (Updated 03/01/24 @ 07:31 by Rhonda Kirkpatrick DO) Breech presentation with 39 completed weeks gestation Nausea/vomiting in Spontaneous Surgical History [place] teeth extracted Family History Grandfather Cancer Grandmother Cancer Other Diabetes Social History Smoking Status: Current every day smoker tobacco type: e-cigarettes alcohol intake: never substance use type: denies use current occupational status: other Travel in the last 8 weeks: None Other Medical History Have you received the Flu Vaccine for this season: No Have you received the Pneumonia Vaccine: No Review of Systems Review of Systems Review of systems:: pertinent systems reviewed and negative unless documented below Meds Home Medications and Allergies Home Medications ?Medication ?Instructions ?Recorded ?Confirmed ?Type vits,calcium 91-iron 28 1 pkg PO DAILY 02/12/23 02/22/24 History mg-folic 975 mcg-dha 200 mg oral pack ( + DHA) New Prescriptions to Start Prescriptions: Allergies Allergy/AdvReac Type Severity Reaction Status Date / Time No Known Allergies Allergy Verified 02/22/24 13:05 OB - H&P: Exam Constitutional no acute distress and cooperative Routine HEENT Exam Head: Present normocephalic and atraumatic Eye: Absent conjunctivae pink ENT: Present mucous membranes moist Routine Neck Exam Present full ROM Routine Respiratory Exam Present CTA bilaterally and normal respiratory effort Routine Cardiovascular Exam Present RRR Routine Abdominal Exam Present soft (Gravid); Absent tenderness Routine Rectal Exam Patient deferred: visual exam Routine Exam External: Present normal urethra appearance; Absent erythema, tenderness, lesions or vulvar erythema Routine Extremities Exam Present full ROM; Absent edema or calf tenderness Routine Neurological Exam Present alert, moving all extremities and normal speech Routine Psychiatric Exam Present normal affect and cooperative OB - Results Labs Labs: Short CBC 03/01/24 Range/Units 05:35 WBC 11.7 H (4.8-10.8) K/mm3 Hgb 12.8 (12.2-16.2) g/dL Hct 36.4 L (37.0-47.0) % Plt Count 232 (142-424) K/mm3 BMP 03/01/24 05:35 Sodium 137 Potassium 3.4 L Chloride 110 H Carbon Dioxide 17 L BUN 4 L Creatinine 0.40 L Glucose 74 Calcium 9.1 Liver Function 03/01/24 Range/Units 05:35 Total Bilirubin 0.6 (0.2-1.3) mg/dl AST 27 (14-36) U/L ALT 23 (12-78) U/L Alkaline Phosphatase 230 H (38-126) U/L Albumin 3.3 L (3.5-5.0) g/dl OB - A/P Antepartum (1) with 39 completed weeks gestation: Status: Acute (2) Breech presentation: Status: Acute Additional Plan Planning to breastfeed?: Yes Additional Information:: Reviewed risks, benefits, alternatives, expectations and possible complications of surgery. All questions addressed and answered. She voiced understanding of risks and possible complications. Bedside ultrasound this morning confirmed baby is still breech Proceed with scheduled primary
--- NOTE | 2024-03-01 08:53 | P.OP_ITS ---
Date of procedure: 03/01/24 Pre-op Diagnosis:: 1. IUP at 39w1d 2. Breech presentation Post-op Diagnosis:: 1. IUP at 39w1d 2. Breech presentation Procedure performed:: Primary Low Transverse Section Surgeon:: Rhonda Kirkpatrick DO Maintenance Engineer Oil Field(s):: Varghese Donahue MD CASH ACCOUNTANT:: Radha Schneider Anesthesia: spinal Estimated blood loss (mL): 400 Clinical Note:: Ms Maris Garay is a 19 yo at 39w1d who presents to [facility] for scheduled primary secondary to breech presentation. She has had good care. Bedside ultrasound this morning confirmed baby still breech. Operative findings:: 1. Live male baby, Leodan, weighing 5 lb 12 oz, APGARs 8 (1 min), 9 (5 min) 2. Efraín breech presentation 3. Grossly normal appearing uterus, bilateral fallopian tubes and ovaries Operative note:: The risks, benefits and alternatives of the procedure were reviewed with the patient. Informed consent was obtained. Patient was taken to the operating room where spinal anesthesia was placed. The patient received 2 grams of Ancef preoperatively. Patient was placed in dorsal supine position. SCDs in place. Finley catheter was inserted and draining clear urine prior to the start of the procedure. heart tones were obtained. Patient was then prepped and draped in normal sterile fashion. Allis clamp test was performed to ensure adequate anesthesia. A Pfannenstiel skin incision was made 2 cm above pubic symphysis. This was carried through to underlying layer of fascia. Fascia was incised in midline, extended laterally with Sullivan scissors. Superior aspect of fascial incision was grasped with two Karthik clamps, elevated up, and rectus muscle dissected off bluntly and sharply with Sullivan scissors. Inferior aspect of fascial incision was grasped with two Karthik clamps, elevated up, and rectus muscle dissected off bluntly and sharply with Sullivan scissors. The retcus muscle was then in the midline and the peritoneum was entered bluntly with a digit. Peritoneal incision was then extended superiorly and inferiorly with good visualization of the bladder. Klever retractor was inserted. The lower uterine segment was incised in a transverse fashion. Clear amniotic fluid was noted. Baby was efraín breech presentation. Baby was delivered using standard breech delivery technique without difficulty. Mouth and nares were bulb suctioned. Spontaneous cry was noted. Delayed cord clamping was performed for 60 seconds. The umbilical cord was clamped and cut. The infant was handed to awaiting pediatric staff in stable condition. Dr. Muhammad was present. Apgars were 8(1 min), 9(5 min). Gentle traction on the umbilical cord and uterine fundal massage delivered the placenta. Placenta was intact. Uterus was cleared of all clots and debris with a moist laparotomy sponge. Corners of the uterine incision were grasped with Allis clamps. The uterine incision was reapproximated with # 1 Vicryl suture in a running, locked stitch. Second layer of the same stitch was used to imbricate the incision. Vesicouterine peritoneum was reapproximated in a running locked stitch with 2-0 Vicryl suture. Hemostasis was noted. Posterior cul-de-sac was cleaned with moist laparotomy sponge. Gutters cleared of all clots and debris with a moist laparotomy sponge. Reinspection of the lower uterine segment demonstrated excellent hemostasis. At this point all instruments and sponges were removed from the pelvis.? The peritoneum was grasped with Cheyanne clamps x 3. The peritoneum was reapproximated with 0 Vicryl suture in a running stitch. The corners of the fascia were grasped with Karthik clamps, and the fascia was reapproximated with two # 1 Vicryl suture overlapped to the right of midline. Subcutaneous tissue was irrigated with clear return of fluids. The subcutaneous tissue was reapproximated with 3-0 Vicryl. The skin was reapproximated with Insorb sapna. Steri strips and Telfa was placed over closed Pfannenstiel skin incision. At the end of the procedure, the uterus was firm with minimal vaginal bleeding. Patient tolerated the procedure well. Instrument, sponges and needle counts were correct x 2. Mom and baby were transported to recovery room in stable condition. Condition: stable Disposition: floor Complications:: None
--- NOTE | 2024-03-01 09:02 | EXP.ANES.I ---
[facility] Anesthesia Record Part I Anesthesia Record I Intake, IV Amount: 1,500 Hydration: Adequate Estimated blood loss (mL): 400 Urine output (mL): 100 Blood Pressure: 116/60 SaO2: 97 Pulse Rate: 84 Airway Patency: Patent Respiratory Rate: 14 Temperature: 97.7 F Patient is:: Awake Stable to PACU at:: 08:55
[2024-03-01] MEDS: OXYTOCIN/RINGERS LACTATE 30 UNITS/500 ML BAG 40 UNITS IV ×2 (09:30)
[2024-03-01 10:23] LABS: Microscopic,Cath URINE MICROSCOPIC (MICROSCOPIC)
[2024-03-01 10:26] LABS: Appearance,Urine/Cath CLEAR (Clear); Bilirubin,Cath Negative (Negative); Blood, Urine/Cath Negative (Negative); Color,Urine/Cath YELLOW (Yellow); Glucose,Urine/Cath (UA) Negative (Negative); Ketones,Urine/Cath Negative (Negative); Leukocyte Esterase,Cath Negative (Negative); Nitrate,Cath Negative (Negative); Protein,Urine/Cath Negative (Negative); Urobilinogen,Cath 0.2 EU/dl (0.2)
[2024-03-01 10:53] LABS: Squamous Epithelial Ur./Cath Occasional #/hpf (0-5)
[2024-03-01] MEDS: HYDROMORPHONE 2MG/ML SYRINGE 1 MG IV (11:21)
[2024-03-01] MEDS: SODIUM CHLORIDE 0.9% 10ML FLUSH SYRINGE 10 ML IV ×2 (11:22→15:16)
--- NOTE | 2024-03-01 12:59 | P.PNANES_ITS ---
[facility] Anesthesia Record Part II Anesthesia Record Part II Discharge Time: 09:28 Destination: Obstetric PACU nurse assessment reviewed?: Yes Patient Condition:: Good Anesthesia Complications:: None Swallowing reflex intact?: Yes Airway Patency: Patent Cyanosis?: No Blood Pressure: 131/67 SaO2: 100 Respiratory Rate: 16 Pulse Rate: 65 Temperature: 97.7 F Mental Status: Alert & Oriented Pain level:: 0 Nausea and/or vomitting:: None Intake, IV Amount: 0 Hydration: Adequate
[2024-03-01] MEDS: CEFAZOLIN SODIUM 2 GM in 0.9 % SODIUM CHLORIDE 100 ML IV (15:15)
[2024-03-01] MEDS: PRENATAL MULTIVITAMIN W/IRON 1 EACH PO (15:15)
[2024-03-01] MEDS: KETOROLAC 30MG/ML VIAL 30 MG IV ×2 (15:16→22:04)
[2024-03-01] MEDS: ACETAMINOPHEN 500MG TAB 1000 MG PO ×2 (15:16→22:04)
[2024-03-02] MEDS: CEFAZOLIN SODIUM 2 GM in 0.9 % SODIUM CHLORIDE 100 ML IV (00:18)
[2024-03-02 00:24] VITALS: BP 122/65; PULSE 68; RESP 18; TEMP 36.4
[2024-03-02 02:06] LABS: POC Glucose,Bedside 52 (70-110)
[2024-03-02] MEDS: KETOROLAC 30MG/ML VIAL 30 MG IV (04:30)
[2024-03-02] MEDS: ACETAMINOPHEN 500MG TAB 1000 MG PO ×2 (04:31→17:11)
[2024-03-02 04:34] VITALS: BP 139/86; PULSE 81; RESP 16; TEMP 36.8; O2SAT 99
[2024-03-02 07:00] LABS: Basophils % 0.2 % (0.1-2.0); Eosinophils % 0.4 % (0.1-12.0); Hematocrit 32.8 % (37.0-47.0); Hemoglobin 10.9 g/dL (12.2-16.2); Lymphocytes # 1.7 K/mm3 (0.7-4.5); Lymphocytes % 14.3 % (10-50); Mean Corpuscular HGB Conc 33.2 g/dL (31.8-35.4); Mean Corpuscular Hemoglobin 30.8 pg (27.0-31.2); Mean Corpuscular Volume 92.8 fl (81-99); Mean Platelet Volume 10.1 fl (7.4-10.4); Monocytes # 0.9 K/mm3 (0.1-1.0); Monocytes % 7.1 % (1.7-9.3); Neutrophils # 9.4 K/mm3 (1.8-7.8); Neutrophils % 78.1 % (37.0-80.0); Platelet Count 168 K/mm3 (142-424); Red Blood Count 3.53 M/mm3 (4.20-5.40); Red Cell Distribution Width 13.6 % (11.5-17.5); White Blood Count 12.1 K/mm3 (4.8-10.8)
[2024-03-02 08:08] VITALS: BP 125/73; PULSE 69; RESP 18; TEMP 36.8; O2SAT 97
--- NOTE | 2024-03-02 08:56 | P.PN_ITS ---
Subjective *Date: 03/02/24 *Time: 12:21 Interval history: POD # 1 s/p PLTCS Feeling well. Pain controlled. Formula feeding. Lochia is appropriate. Voiding without difficulty and passing flatus. Tolerating regular diet. Denies fever/chills, chest pain and shortness of breath. No headaches, vision changes, lightheadedness/dizziness. No lower extremity swelling. Ambulating well ad jabari. Medical Exam Vital signs and Labs for Last 24 Hours: Vital Signs Temp Pulse Pulse Resp BP BP Pulse Ox 03/02/24 04:34 98.3 F 81 16 139/86 99 03/02/24 00:24 97.6 F 68 18 122/65 03/01/24 22:14 98.1 F 72 18 119/69 99 03/01/24 13:01 16 03/01/24 09:28 97.7 F 65 16 131/67 100 03/01/24 09:18 97.7 F 71 16 130/53 L 100 03/01/24 09:08 97.7 F 73 16 136/74 100 03/01/24 09:03 97.7 F 84 14 116/60 03/01/24 08:58 97.7 F 85 16 116/60 99 O2 Del Method 03/02/24 04:34 Room Air 03/02/24 00:24 03/01/24 22:14 Room Air 03/01/24 13:01 03/01/24 09:28 Room Air 03/01/24 09:18 Room Air 03/01/24 09:08 Room Air 03/01/24 09:03 03/01/24 08:58 Room Air Intake and Output 03/01/24 03/02/24 03/02/24 23:59 07:59 15:59 Output Total 1000 / 1000 Balance -1000 / 500 Output: Output, Urine Amount 1000 / 1000 Laboratory Results - last 24 hr 03/01/24 05:35: Blood Type O Positive, Antibody Screen Negative 03/01/24 07:50: Urine Color Yellow, Urine Appearance Clear, Urine pH 7.0, Ur Specific [place] 1.010, Urine Protein Negative, Urine Glucose (UA) Negative, Urine Ketones Negative, Urine Blood Negative, Urine Nitrate Negative, Urine Bilirubin Negative, Urine Urobilinogen 0.2, Ur Leukocyte Esterase Negative, Urine RBC None, Urine WBC None, Ur Squamous Epith Cells Occasional, Urine Bacteria None 03/02/24 01:58: POC Glucose 52 L 03/02/24 06:24: WBC 12.1 H, RBC 3.53 L, Hgb 10.9 L, Hct 32.8 L, MCV 92.8, MCH 30.8, MCHC 33.2, RDW 13.6, Plt Count 168 D, MPV 10.1, Neut % (Auto) 78.1, Lymph % (Auto) 14.3, [place] % (Auto) 7.1, Eos % (Auto) 0.4, Baso % (Auto) 0.2, Neut # (Auto) 9.4 H, Lymph # (Auto) 1.7, [place] # (Auto) 0.9, Eos # (Auto) 0.0, Baso # (Auto) 0.0 I & O for Labs for Last 24 Hours: Intake & Output 02/28/24 02/29/24 03/01/24 03/02/24 23:59 23:59 23:59 23:59 Intake Total 1500 / 1500 Output Total 1000 / 1000 Balance 500 / 500 Weight 211 lb Head: Present atraumatic and normocephalic ENT: Present mucous membranes moist Neck: Present full ROM Respiratory: Present CTA bilaterally and normal respiratory effort Cardiac: Present Reg Rate and Rhythm GI: Present soft and normal bowel sounds; Absent distention or tenderness Comments:: Pfannenstiel incision clean/dry/intact with steri strips in place, Uterine fundus firm and below umbilicus Rectal (female): Present deferred (female): Present deferred Extremities: Present full ROM; Absent edema or calf tenderness Neuro: Present alert, awake and moves all extremities Assessment and Plan *Assessment and plan (1) S/P : Status: Acute Category: Surgical Code(s): Z98.891 - History of uterine scar from previous surgery (2) with 39 completed weeks gestation: Status: Acute Category: Medical Code(s): Z3A.39 - 39 weeks gestation of (3) Breech presentation: Status: Acute Category: Medical Code(s): O32.1XX0 - Maternal care for breech presentation, not applicable or unspecified Plan Continue routine care. She is feeling well POD # 1 Encouraged increased ambulation Plan d/c home tomorrow, POD # 2
[2024-03-02 12:20] LABS: Rapid Plasma Reagin Ab Titer Non Reactive titer (NonRea<1:1)
[2024-03-02] MEDS: PRENATAL MULTIVITAMIN W/IRON 1 EACH PO (17:11)
[2024-03-02] MEDS: IBUPROFEN 400 MG TABLET 800 MG PO (17:11)
[2024-03-02] MEDS: SENNA 8.6MG TABLET 8.6 MG PO (17:13)
[2024-03-03] MEDS: ACETAMINOPHEN 500MG TAB 1000 MG PO (02:36)
[2024-03-03] MEDS: IBUPROFEN 400 MG TABLET 800 MG PO (02:36)
[2024-03-03 08:42] VITALS: BP 126/69; PULSE 87; RESP 18; TEMP 36.8; O2SAT 97
--- NOTE | 2024-03-03 10:16 | P.DS_ITS ---
General Admission date:: 03/01/24 Discharge date: 03/03/24 HPI HPI HPI: POD # 2 s/p PLTCS Feeling well. Pain controlled. Formula feeding. Lochia is light. Voiding without difficulty and passing flatus. Tolerating regular diet. Denies fever/chills, chest pain and shortness of breath. No headaches, vision changes, lightheadedness/dizziness. No lower extremity swelling. Ambulating well ad jabari. Hospital Course Hospital Course Hospital Course: Ms Maris Garay is a 19 yo at 39w1d who presents to [facility] for scheduled primary secondary to breech presentation. She has had good care. Bedside ultrasound this morning confirmed baby still breech. She underwent primary on 03/01/24. She delivered a live male baby, Leodan, weighing 5 lb 12 oz, APGARs 8 (1 min), 9 (5 min). EBL 400 mL. She did well /postoperatively. Pain controlled. Formula feeding. Light lochia. Voiding without difficulty and passing flatus. Tolerating regular diet. Denies fever/chills, chest pain and shortness of breath. No headaches, dizziness/lightheadedness or vision changes. Vital signs stable, afebrile. Heart regular rate and rhythm. Lungs clear to auscultation. Abdomen soft, nontender. No lower extremity swelling. Ambulating well ad jabari. Normal hospital course. She was discharged to home on POD # 2 with instructions to follow-up in the office in 2 weeks or sooner if needed. Exam Data for Last 24 hours Vital signs and Labs for Last 24 Hours: Temp Pulse Resp BP Pulse Ox O2 Del Method 98.3 F 69 18 125/73 97 Room Air 03/02/24 08:08 03/02/24 08:08 03/02/24 08:08 03/02/24 08:08 03/02/24 08:08 03/02/24 08:08 Laboratory Results - last 24 hr 03/01/24 05:35: RPR Titer Non reactive I & O for Last 24 hours: Intake & Output 02/29/24 03/01/24 03/02/24 03/03/24 23:59 23:59 23:59 23:59 Intake Total 1500 / 1500 Output Total 1000 / 1000 Balance 500 / 500 Weight 211 lb Constitutional Constitutional: no acute distress and cooperative *Routine HEENT Exam Head: Present normocephalic and atraumatic Eye: Absent conjunctivae pink ENT: Present mucous membranes moist *Routine Neck Exam Neck: Present full ROM *Routine Respiratory Exam Respiratory: Present CTA bilaterally and normal respiratory effort *Routine Cardiovascular Exam Cardiovascular: Present RRR *Routine Abdominal Exam Abdominal: Present soft and normoactive bowel sounds; Absent tenderness or distended Comments: Pfannenstiel incision clean/dry/intact, steri strips present *Routine Rectal Exam Patient deferred: visual exam *Routine Exam Patient deferred: external exam *Routine Extremities Exam Extremities: Present full ROM; Absent edema or calf tenderness *Routine Neurological Exam Neurological: Present alert, moving all extremities and normal speech Routine Psychiatric Exam Psychiatric: Present normal affect and cooperative Results Data Completed and Pending Labs on day of discharge: Labs from last 24 hours 03/01/24 05:35 RPR Titer Non reactive DS: Diagnosis Discharge Diagnosis (1) S/P : Status: Acute Code(s): Z98.891 - History of uterine scar from previous surgery (2) with 39 completed weeks gestation: Status: Acute Code(s): Z3A.39 - 39 weeks gestation of (3) Breech presentation: Status: Acute Code(s): O32.1XX0 - Maternal care for breech presentation, not applicable or unspecified Meds Home Medications and Allergies Home Medications ?Medication ?Instructions ?Recorded ?Confirmed ?Type vits,calcium 91-iron 28 1 pkg PO DAILY 02/12/23 03/01/24 History mg-folic 975 mcg-dha 200 mg oral pack ( + DHA) ibuprofen 800 mg tablet 800 mg PO Q8H PRN pain #20 tabs 03/03/24 Rx oxycodone 5 mg tablet 5 mg PO Q4HP PRN Moderate Pain 03/03/24 Rx (4-6) #20 tabs New Prescriptions to Start Prescriptions: Rhonda Bryan oxycodone Rhonda Kirkpatrick Allergies Allergy/AdvReac Type Severity Reaction Status Date / Time No Known Allergies Allergy Verified 02/22/24 13:05 Discharge Plan Disposition Patient Disposition: Home, Self-Care Condition: Good Discharge Order Discharge Orders: Discharge Order (Routine); Ordered 03/03/24 Ordered By: Rhonda Kirkpatrick Follow up Plan Follow up with: Rhonda Kirkpatrick DO [Primary Care Provider] - 2 weeks Prescriptions/Medication Reconciliation: New oxycodone 5 mg Tablet 5 mg PO Q4HP PRN (Reason: Moderate Pain (4-6)) Qty: 20 0RF ibuprofen 800 mg tablet 800 mg PO Q8H PRN (Reason: pain) Qty: 20 0RF Continued + DHA 28 mg iron- 975 mcg-200 mg Combo Pack 1 pkg PO DAILY Problem Reconciliation Problems Reviewed?: Yes Patient Discharge Instructions ACTIVITY: Limited activity DIET: continue same diet and regular diet Additional Instructions: Congratulations!! Discharge: 1. Take 800 mg Ibuprofen every 8 hours as needed for pain. You can also take 500-1000 mg of Tylenol in between doses, every 6-8 hours. If pain persists you can take Oxycodone 5 mg, 1 tablet every 4-6 hours or longer, as needed. 2. Nothing in the vagina for 6 weeks - no intercourse, douching or tampons. No tub baths/hot tubs or swimming pools 3. No lifting anything heavier than baby in pumpkin seat for 6 weeks 4. Reasons to return to L&D or call On-Call doctor - fever (greater than 100.4) - heavy vaginal bleeding (soaking through 1 pad in less than 2 hours) - vaginal discharge (malodorous and/or purulent) - severe headaches not resolved by medication or rest and leg tenderness/edema 5. depression/blues - Normal to feel anxious/overwhelmed for first 2 weeks - Talk to your doctor if: severe anxiety, trouble bonding with baby, withdrawing from other family members, thoughts of harming yourself or others Rhonda Kirkpatrick DO [facility] [phone] Patient Instructions: Depression, Hemorrhage, DI for , DI for Pre-eclampsia, [facility] Post Discharge Instructions Print Language: Serbian Providers Primary Care Provider: Rhonda Kirkpatrick Admit Provider: Nadia Schrader Attending Provider: Nadia Schrader
[2024-03-03] MEDS: SENNA 8.6MG TABLET 8.6 MG PO (12:53)
== END 2024-03-03 13:00 | disposition home or self-care (01) | DRG 788 ==
PROVIDERS: Admitting Provider Obstetrics & Gynecology; PCP Obstetrics & Gynecology; Visit Provider Obstetrics & Gynecology
PROC: 10D00Z1 Extraction of Products of Conception, Low, Open Approach (ICD-10-PCS; CPT 59514; principal; 2024-03-01 07:30)
DX: O64.1XX0 Obstructed labor due to breech presentation, not applicable or unspecified (principal); Z3A.39 39 weeks gestation of pregnancy; Z37.0 Single live birth
CPT/HCPCS: 36415; 59025; 80053; 81001; 82962; 85025; 86593; 86850; 94761; C9290; G0283; J1171; J1885; J2405; J7120

== ENCOUNTER 2025-02-21 20:39 | Emergency (ER) | payer OTHER, SELFPAY ==
[2025-02-21 20:43] VITALS: BP 158/83; PULSE 113; RESP 18; TEMP 36.7; O2SAT 100; BMI 43.7
--- NOTE | 2025-02-21 21:07 | [facility].EDGENADL ---
Discharge Plan Disposition Patient Disposition: Home, Self-Care Prescriptions Prescriptions: New cephalexin 500 mg capsule 500 mg PO Q6H 7 Days Qty: 28 0RF No Action medroxyprogesterone 150 mg/mL suspension 150 mg IM [id number] Qty: 1 3RF Referrals Follow up/Referrals: Ana Paula Andujar [Primary Care Provider, Medical] - See instructions Activity Restrictions/Add. Instructions Additional Instructions/Restrictions: You have an infection of the skin on your left leg. Take the antibiotic as prescribed. I do encourage you to follow-up with your primary care doctor tomorrow as scheduled. You can take Tylenol and ibuprofen to help with pain. If you develop any new or worsening symptoms, such as spreading of the area of redness despite taking antibiotics, fever, numbness or tingling in the leg, or if you become concerned for your health for any reason, return to the emergency department for evaluation Clinical Impressions Clinical Impression: Cellulitis Instructions Patient Instructions: DI for Laceration Repair Print Language Print Language: Citizen Of [place] Discharge ED Provider: Isra Feliz Adult HPI General Chief complaint: Wound/Laceration Stated complaint: left leg painful spot Time Seen by Provider: 02/21/25 20:55 Mode of Arrival: Ambulatory Source of Information: Patient Description of Symptoms (Recalled from ER Triage Doc. by RN): patient presents with redness and swollen spot on her left lower leg. she noticed it this morning when she woke up. does not know if she has been bit. History of Present Illness HPI narrative: Maris Craig is a 20-year-old female with no significant medical history who presents to the emergency department for complaints of pain in redness to her left calf. Patient states that yesterday, she think she may have been bitten by a bug in the left calf as well area of redness that has worsened today. She states that it seems to have spread some. She has been taking Tylenol, ibuprofen and mupirocin ointment. She notes that she has an appointment with her primary care doctor tomorrow. She denies any history of diabetes or trauma to the area. Related Data Previous Rx's ?Medication ?Instructions ?Recorded medroxyprogesterone 150 mg/mL 150 mg IM [id number] #1 mL 04/12/24 intramuscular suspension cephalexin 500 mg capsule 500 mg PO Q6H 7 days #28 caps 02/21/25 Allergies Allergy/AdvReac Type Severity Reaction Status Date / Time No Known Allergies Allergy Verified 12/23/24 09:30 [facility] Disclaimer: The information contained in this section may have been updated after the patient was seen, as this information can be updated by other users. Medical History Breech presentation with 39 completed weeks gestation Nausea/vomiting in Spontaneous Surgical History S/P [place] teeth extracted Family History Grandfather Cancer Grandmother Cancer Other Diabetes Social History Smoking Status: Current every day smoker tobacco type: e-cigarettes alcohol intake: never substance use type: denies use current occupational status: employed Travel in the last 8 weeks?: None household members: spouse housing: house Have you lived/traveled outside [place] in past 30 days?: No Contact w/someone who lives/traveled outside US past 30 days?: No Exposure to someone with infectious disease in past 14 days?: No Do you have a fever (greater than 100.4 F or 38 C)?: No Have you tested positive for COVID-19?: No Exposed to someone with COVID-19 in past 14 days?: No Do you have a sore throat?: No Do you have a cough?: No Do you have any weakness?: No Do you have any diarrhea?: No Are you experiencing any unusual bleeding?: No Do you have any muscle aches/pain?: No Do you have any abdominal pain?: No Are you experiencing loss of taste or smell?: No Other Medical History Have you received the Flu Vaccine for this season: No Have you received the Pneumonia Vaccine: No ROS Obtained: Yes Systems reviewed as appropriate & no additional complaints except as documented Physical Exam General General appearance: alert and in no apparent distress Head Head exam: atraumatic Eye Eye exam: Present normal appearance ENT ENT exam: Present normal external ear exam Neck Neck exam: Present full ROM Chest Chest inspection: Present symmetric chest wall rise Respiratory Respiratory exam: Present normal lung sounds bilaterally; Absent respiratory distress Cardiovascular Cardiovascular exam: Present regular rate and normal rhythm Abdominal Exam Abdominal exam: Present soft; Absent distention, tenderness, guarding or rebound Extremities Exam Extremities exam: Present normal inspection Back Exam Back exam: Present normal inspection Neurological Exam Neurological exam: Present alert and oriented X3 Psychiatric Psychiatric exam: Present normal affect Skin Skin exam: Present warm, dry and erythema (area of erythema to the medial calf) Expanded Skin Exam Body image:  1. erythema, warmth, no fluctuance or induration Medical Decision Making Medical Records Screening: Per USPSTF and CDC recommendations, given the prevalence of disease in our region, it is our hospital?s policy to screen for HIV and viral Hepatitis for all patients aged 18 and over and those with ongoing risk factors. [place]tan Inquiry Pt receiving controlled substance: No Vital Signs: 02/21/25 20:43 02/21/25 21:31 Temperature 98.0 F 98.4 F Temperature Source Oral Oral Pulse Rate 74 Pulse Rate [Right Radial] 113 H Respiratory Rate 18 18 Blood Pressure 120/74 Blood Pressure [Right Arm] 158/83 H Blood Pressure Mean [Right Arm] 108 Blood Pressure Source Manual Cuff/ Doppler Blood Pressure Source [Right Arm] Automatic Cuff Blood Pressure Position Sitting Blood Pressure Position [Right Arm] Sitting 02 Sat by Pulse Oximetry 100 Oxygen Delivery Method Room Air Room Air Orders (Tests/Meds): ED MEDICATIONS Discontinued Medications Generic Name Dose Route Start Last Admin Trade Name Freq PRN Reason Stop Dose Admin Cephalexin HCl 500 mg 02/21/25 21:03 02/21/25 21:23 Cephalexin 250mg/5ml 100ml Susp PO 02/21/25 21:04 500 mg ONCE ONE Administration ORDERS Category Date Time Status POCUS Point of Care (ER Only) Stat Exams 02/21/25 20:59 Completed Medical Decision Narrative: Maris Craig is a 20-year-old female with no significant medical history who presents to the emergency department for complaints of pain in redness to her left calf. Patient states that yesterday, she think she may have been bitten by a bug in the left calf as well area of redness that has worsened today. She states that it seems to have spread some. She has been taking Tylenol, ibuprofen and mupirocin ointment. She notes that she has an appointment with her primary care doctor tomorrow. She denies any history of diabetes or trauma to the area. On arrival, patient is hemodynamically stable, initially tachycardic but resolved without intervention. Afebrile. Physical exam, as stated above, revealed an overall well-appearing female in no distress. She has a palm sized area of erythema and warmth to the medial aspect of her left calf. This has been outlined in marker, which was done by her prior to arrival. The erythema has not escaped the margins of the marker at this time. She is neurovascularly intact distally. No fluctuance or induration is appreciated. Differential diagnosis includes, but is not limited to: Cellulitis, erysipelas, abscess, insect bite, among others. The most morbid conditions were considered and workup was based on these. [id number] ultrasound was performed by me personally and of the MSK/soft tissues in that area. There is cobblestoning but no loculated fluid collection to suggest abscess. See procedure note for details. No evidence of necrotizing soft tissue infection. Patient's clinical exam and ultrasound findings are most consistent with cellulitis. I do not feel that additional laboratory studies or imaging are indicated at this time as it would not change ED management. Will prescribe course of Keflex to treat her soft tissue infection. Recommended that she follow-up with her primary care doctor tomorrow as scheduled. Return precautions were given. All questions were answered. She demonstrated understanding and was in agreement this plan. She was then discharged from the emergency department in stable condition. Procedures Limited Ultrasound Indication:: Limited MSK/soft tissue ultrasound Indication: Soft tissue swelling and redness Identified structures: Location: Left campbell/calf Findings: Cobblestoning suggestive of cellulitis. No dirty shadowing to suggest necrotizing infection. No loculated fluid collection to suggest abscess. Impression: Cellulitis of soft tissue Images were saved to permanent archive The study was technically adequate Soft Tissue CPT Codes: CPT Neck: 18281-15 CPT Upper extremity: 88377-28 CPT Axilla: 92574-97 CPT Chest wall: 85267-47 CPT Breast: 13340-71-NP/LT (complete), 49651-72-DR/LT (limited), CPT Upper Back: 69707-28 CPT Lower Back: 29338-70 CPT Abdominal Wall: 43982-79 CPT Pelvic Wall: 76414-98 CPT Lower Extremity: 33143-51 CPT Other Soft Tissue: 32745-44 This study was performed by me, Isra Feliz MD, and I personally interpreted all images/videos. Based on my clinical judgement, these images were adequate and did not necessitate further imaging. Critical Care Critical Care Time Critical Care Time: No
[2025-02-21] MEDS: cephALEXin 250MG/5ML 100ML SUSP 500 MG PO (21:23)
[2025-02-21 21:31] VITALS: BP 120/74; PULSE 74; RESP 18; TEMP 36.9; O2SAT 100
== END 2025-02-21 21:32 | disposition home or self-care (01) ==
PROVIDERS: Emergency Provider Student in an Organized Health Care Education/Training Program; PCP Nurse Practitioner Family
DX: L03.90 Cellulitis, unspecified (principal)
CPT/HCPCS: 99282; 99283